=== PATIENT | male | born 1930 | race Caucasian/White ===

== ENCOUNTER 2016-09-24 16:00 | Inpatient (IN) | payer OTHER ==
[~2016-09-24] VITALS: Ht 177.8 cm; Wt 106.5 kg
--- NOTE | 2016-09-24 16:42 | EMERGENCY ROOM VISIT NOTE ---
History Report prepared by Dann: Giovana Khan Under the Supervision of: Dr. Juan Antonio Ball M.D. 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 The patient states he had blood work earlier this morning and it showed hemoglobin of 7. The patient states that otherwise he feels normal. The patient denies being tired, short of breath, chest pain, cough, fever. Chills, diarrhea, or vomiting, blood in stool. The patient states he does not currently take any blood thinners. 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 Review of Systems See HPI for pertinent positives & negatives. A total of 10 systems reviewed and were otherwise negative. Past Medical & Surgical Medical Problems: (1) Leukemia, acute (2) Symptomatic anemia Old medical records were reviewed. Nurse's notes were reviewed and I agree with. Family History Patient reports no known family medical history. Social History Smoking Status: Never Smoker Marital Status: single Housing Status: lives alone Occupation Status: retired Current/Historical Medications Scheduled Amiodarone Hcl (Cordarone), 200 MG PO DAILY Amlodipine (Norvasc), 5 MG PO DAILY Atorvastatin (Lipitor), 20 MG PO HS Docusate Sodium (Colace), 1 CAP PO BID Glipizide (Glucotrol), 10 MG PO BID Levothyroxine Sodium (Synthroid), 25 MCG PO DAILY Magnesium Hydroxide (Milk Of Magnesia), 30 ML PO PRN UD Melatonin-Pyridoxine (Melatonin), 3 MG PO HS Metoprolol Succinate (Toprol Xl), 25 MG PO DAILY Multivitamins/Minerals (Mvi With Minerals), 1 TAB PO DAILY Polyethylene Glycol 3350 (Miralax), 17 GM PO BID Sennosides-Docusate Sodium (Senna-S), 1 TAB PO DAILY Sitagliptin (Januvia), 25 MG PO DAILY Tamsulosin Hcl (Flomax), 0.4 MG PO DAILY [Protein Supp], 30 ML PO DAILY Scheduled PRN Acetaminophen Tab (Tylenol), 650 MG PO Q6 PRN for Pain or Fever Allergies Coded Allergies: Animal Dander (Verified Allergy, Unknown, UNKNOWN, 09/24/16) Physical Exam Vital Signs Date Time Temp Pulse Resp B/P Pulse Ox O2 Delivery O2 Flow Rate FiO2 09/24/16 17:18 76 18 81/51 95 Nasal Cannula 5.0 09/24/16 16:15 79 09/24/16 16:14 92 Nasal Cannula 5.0 09/24/16 16:13 92 Nasal Cannula 5.0 09/24/16 16:05 36.8 76 26 111/65 84 Room Air Physical Exam General: Chronically ill appearing older male in no acute distress. Sleepy but arousable, answers most questions appropriately. HEENT: Normal cephalic atraumatic. Pupils are equal round and reactive to light. Sclerae anicteric. Extraocular movements are intact. Oropharynx is pink with moist mucous membranes. No swelling of the mouth lips or tongue. Neck: Supple with a midline trachea. No meningeal signs or stiffness, no JVD or bruits. No Stridor. Chest: Clear to auscultation bilaterally. No wheezes or rhonchi. No increased work of breathing. Heart: regular rate and rhythm. Abdomen: Soft nontender, nondistended without rebound guarding or rigidity. Extremities: No cyanosis clubbing or edema. No calf tenderness or assymetry. Spine/Back. Non tender to palpation. No CVA tenderness Skin: Lower extremities with chronic skin changes from chronic vascular problems Neurologic exam: Cranial nerves two through 12 are intact. Motor and sensation are intact and symmetrical throughout. Medical Decision & Procedures ER Provider Diagnostic Interpretation: X-ray results as stated below per interpretation by me and the radiologist: CHEST ONE VIEW PORTABLE CLINICAL HISTORY: CHEST PAIN dyspnea COMPARISON STUDY: None FINDINGS: Moderate cardiomegaly. Prior median sternotomy. Prominent pulmonary vasculature. IMPRESSION: Developing congestive heart failure Electronically signed by: Pablito Arevalo M.D. 09/24/2016 4:58 PM Dictated Date/Time: 09/24/2016 4:57 PM Laboratory Results 09/24/16 17:04 Red Blood Count 2.71, Mean Corpuscular Volume 81.9, Mean Corpuscular Hemoglobin 27.7, Mean Corpuscular Hemoglobin Concent 33.8, Mean Platelet Volume 8.7 09/24/16 17:04 Test 09/24/16 17:04 09/24/16 17:08 White Blood Count 4.62 K/uL (4.8-10.8) Red Blood Count 2.71 M/uL (4.7-6.1) Hemoglobin 7.5 g/dL (14.0-18.0) Hematocrit 22.2 % (42-52) Mean Corpuscular Volume 81.9 fL (80-100) Mean Corpuscular Hemoglobin 27.7 pg (25-34) Mean Corpuscular Hemoglobin Concent 33.8 g/dl (32-36) Platelet Count 92 K/uL (130-400) Mean Platelet Volume 8.7 fL (7.4-10.4) RDW Standard Deviation 56.3 fL (36.4-46.3) RDW Coefficient of Variation 19.8 % (11.5-14.5) Nucleated RBC Absolute Count (auto) 0.16 K/uL (0-0) Neutrophils % (Manual) 61.0 % Lymphocytes % (Manual) 21.7 % Monocytes % (Manual) 3.5 % Basophils % (Manual) 1.7 % (0-2) Metamyelocytes % 7.0 % Myelocytes % 1.7 % Promyelocytes % 1.7 % Blast Cells % 1.7 % Nucleated Red Blood Cells % 3.5 % Neutrophils # (Manual) 2.82 K/uL (1.4-6.5) Total Absolute Neutrophils 2.82 K/uL (1.4-6.5) Lymphocytes # (Manual) 1.00 K/uL (1.2-3.4) Total Absolute Lymphocytes 1.00 K/uL (1.2-3.4) Monocytes # (Manual) 0.16 K/uL (0.11-0.59) Basophils # (Manual) 0.08 K/uL (0-0.2) Metamyelocytes # 0.32 K/uL (0-0) Myelocytes # 0.08 K/uL (0-0) Promyelocytes # 0.08 K/uL (0-0) Blast Cells # 0.08 K/uL (0-0) Platelet Estimate DECREASED Polychromasia 1+ Anisocytosis PRESENT Tear Drop Cells 1+ Acanthocytes 1+ Prothrombin Time 13.4 SECONDS (9.0-12.0) Prothromb Time International Ratio 1.2 (0.9-1.1) Activated Partial Thromboplast Time 29.1 SECONDS (21.0-31.0) Partial Thromboplastin Ratio 1.1 Anion Gap 9.0 mmol/L (3-11) Est Creatinine Clear Calc Drug Dose 50.2 ml/min Estimated GFR () 57.7 Estimated GFR (Non- 49.8 BUN/Creatinine Ratio 20.3 (10-20) Calcium Level 9.2 mg/dl (8.5-10.1) Total Bilirubin 0.8 mg/dl (0.2-1) Direct Bilirubin 0.3 mg/dl (0-0.2) Aspartate Amino Transf (AST/SGOT) 45 U/L (15-37) Alanine Aminotransferase (ALT/SGPT) 26 U/L (12-78) Alkaline Phosphatase 150 U/L (45-117) Total Creatine Kinase 49 U/L (39-308) Creatine Kinase MB 0.6 ng/ml (0.5-3.6) Creatine Kinase MB Ratio 1.2 (0-3.0) Total Protein 6.5 gm/dl (6.4-8.2) Albumin 2.5 gm/dl (3.4-5.0) Lipase 88 U/L (73-393) Thyroid Stimulating Hormone (TSH) 2.830 uIu/ml (0.300-4.500) Bedside Troponin I 0.010 ng/ml (0-0.045) IK-Xiu-B-Type Natriuretic Peptide 4324 pg/ml (0-1800) Laboratory studies as stated above per my review. ECG Indication: other (abnormal labs) Rate (beats per minute): 76 Rhythm: atrial fibrillation Findings: nonspecific-ST abn, other (Non specific T wave abnormalities) Comparison ECG Date: March 27, 2000 Change: Atrial fibrillation has replaced sinus rhythm. ED Course 162: Past medical records reviewed. The patient was evaluated in room C10, and a complete history and physical examination were performed. 1644: I discussed the case with Dr. Rivas [facility] Hospitalist. He agreed to see the patient for further management and care. Medical Decision Differentials include, but are not limited to; anemia, infection, CHF, electrolyte or metabolic abnormality, and arrhythmia. This patient comes in as described above. He was sent over after having weakness and some hypoxemia apparently. He didn't is on oxygen he was found be hypoxemic initially. He appears pale. He has no complaints. I have reviewed his labs and records from earlier today. EKG was obtained. He was type and crossed. He was found to be anemic. He also has low platelets. He also has a lot of immature cells including last bringing up the concern for a possible leukemic or bone marrow process. Chest x-ray shows findings consistent with CHF. His BNP is also elevated. EKG shows what appears to be A. fib with out ischemic changes. He has no significant electrode or metabolic abnormalities. I have consulted Dr. Johnston. He saw him in the ER. He has asked that we talk to Dr. Paris to ensure that this is a patient they can keep here because the blasts. At this point, I do not think is in blast crisis. Dr. Paris agrees and feels we can keep him and work him up your and this hospital. He will be admitted. Consults Time Called: [phone] Consulting Physician: Dr. Rivas [facility] Hospitalist Returned Call: [phone] I [facility] the [facility] He agreed to see the patient for further management and care. Impression Primary Impression: Anemia Additional Impression: Weakness Scribe Attestation The scribe's documentation has been prepared under my direction and personally reviewed by me in its entirety. I confirm that the note above accurately reflects all work, treatment, procedures, and medical decision making performed by me. Departure Information Dispostion Being Evaluated By Hospitalist Referrals Leatha Velez (PCP) Patient Instructions [facility] Health Problem Qualifiers
[2016-09-24] MEDS ORDERED: POLY335019 PO (16:52)
[2016-09-24] MEDS ORDERED: TAMS0.4C38 PO (16:52)
[2016-09-24] MEDS ORDERED: DOCU-94 PO (16:52)
[2016-09-24] MEDS ORDERED: MULT-513 PO (16:52)
[2016-09-24] MEDS ORDERED: MOML PO (16:52)
[2016-09-24] MEDS ORDERED: ATOR-22 PO (16:52)
[2016-09-24] MEDS ORDERED: GLIP10TA3 PO (16:52)
[2016-09-24] MEDS ORDERED: PROTEIN PO (16:52)
[2016-09-24] MEDS ORDERED: SENN-104 PO (16:52)
[2016-09-24] MEDS ORDERED: SITA25TA PO (16:52)
[2016-09-24] MEDS ORDERED: AMIO200T4 PO (16:52)
[2016-09-24] MEDS ORDERED: LEVO25TA PO (16:52)
[2016-09-24] MEDS ORDERED: ACET325T96 PO (16:52)
[2016-09-24] MEDS ORDERED: MELA3TAB12 PO (16:52)
[2016-09-24] MEDS ORDERED: AMLO-110 PO (16:52)
[2016-09-24] MEDS ORDERED: METO25TA3 PO (16:52)
--- NOTE | 2016-09-24 17:00 | DIAGNOSTIC IMAGING REPORT ---
CHEST ONE VIEW PORTABLE CLINICAL HISTORY: CHEST PAIN dyspnea COMPARISON STUDY: None FINDINGS: Moderate cardiomegaly. Prior median sternotomy. Prominent pulmonary vasculature. IMPRESSION: Developing congestive heart failure Electronically signed by: Pablito Arevalo M.D. 09/24/2016 4:58 PM Dictated Date/Time: 09/24/2016 4:57 PM
[2016-09-24 17:23] LABS: HEMATOCRIT 22.2 % (42-52); MEAN CELL VOLUME 81.9 fL (80-100); MEAN CORPUSCULAR HEMOGLOBIN 27.7 pg (25-34); MEAN CORPUSCULAR HGB CONC 33.8 g/dl (32-36); RED BLOOD COUNT 2.71 M/uL (4.7-6.1); WHITE BLOOD COUNT 4.62 K/uL (4.8-10.8)
[2016-09-24 17:29] LABS: POINT OF CARE TROPONIN I 0.01 ng/ml (0-0.045)
[2016-09-24] MEDS ORDERED: ZOLPIDEM TARTRATE 5 MG TAB PO PRN (17:30)
[2016-09-24] MEDS ORDERED: ONDANSETRON INJ 2 MG/ML 2 ML VIAL IV PRN ×2 (17:30→20:00)
[2016-09-24] MEDS ORDERED: ACETAMINOPHEN 325 MG TAB PO PRN (17:30)
[2016-09-24] MEDS ORDERED: NITROGLYCERIN 0.4 MG SL PER TAB CHARGE SL PRN (17:30)
[2016-09-24 17:36] LABS: INR 1.2 (0.9-1.1); PARTIAL THROMBOPLASTIN RATIO 1.1; PROTHROMBIN TIME (PATIENT) 13.4 SECONDS (9.0-12.0)
[2016-09-24 17:44] LABS: BUN/CREATININE RATIO 20.3 (10-20); CALCIUM 9.2 mg/dl (8.5-10.1); CREATININE 1.3 mg/dl (0.60-1.40); POTASSIUM 4.1 mmol/L (3.5-5.1)
[2016-09-24 17:54] LABS: CKMB/CK RATIO 1.2 (0-3.0); THYROID STIMULATING HORMONE 2.83 uIu/ml (0.300-4.500)
[2016-09-24 18:28] LABS: ACANTHOCYTES 1+; ANISOCYTOSIS PRESENT; BASO ABS # 0.08 K/uL (0-0.2); BASOPHIL % 1.7 % (0-2); COMPLETE YES; LYMPHOCYTE % 21.7 %; MEAN PLATELET VOLUME 8.7 fL (7.4-10.4); META ABS # 0.32 K/uL (0-0); MYELOCYTE % 1.7 %; PLATELET COUNT 92 K/uL (130-400); PLT ESTIMATE DECREASED; POLYCHROMASIA 1+; TEAR DROP CELLS 1+
[2016-09-24] MEDS ORDERED: IPRATROPIUM BROMIDE NEB SOLN 0.02% 2.5 ML VIAL INH PRN (19:00)
[2016-09-24] MEDS ORDERED: LEVALBUTEROL 1.25MG/0.5ML NEB INH PRN (19:00)
[2016-09-24] MEDS ORDERED: PIPERACILL/TAZOBAC CONSULT ACTIVE PRN (19:00)
[2016-09-24] MEDS ORDERED: PIPERACILL/TAZOBAC IV 3.375 GM in DEXTROSE 5% 100ML 100 ML IV ONE (19:00)
[2016-09-24] MEDS ORDERED: VANCOMYCIN CONSULT ACTIVE PRN (19:15)
[2016-09-24 19:17] VITALS: BP 110/73; PULSE 86; TEMP 36.8; O2SAT 96; BMI 32.9
[2016-09-24] MEDS: NSS + 20MEQ KCL 1000ML 1,000 ML IV SCH (19:17)
[2016-09-24] MEDS: LEVOFLOXACIN / D5W 500 MG in PREMIXED IN D5W 100 ML IV SCH ×2 (19:17→23:19)
[2016-09-24] MEDS: METHYLPREDNISOLONE IV 30 MG in SYRINGE 0 ML IV SCH (19:17)
--- NOTE | 2016-09-24 19:56 | History and Physical ---
History & Physical Date & Time of Service: Sep 24, 2016 at 19:39 Chief Complaint: Leukemia, Acute, Symptomatic Anemia Primary Care Physician: Terrence Gaona M.D. History of Present Illness Source: patient, clinic records, hospital records The patient is an 86-year-old male who presents emergency department from [facility] after lab work this morning revealed a hemoglobin of 7. The patient does not have any active complaints at this point although he looks very fatigued. He denies blood in urine or blood in stool Family History Patient reports no known family medical history. Social History Smoking Status: Unknown if Ever Smoked Smokeless Tobacco Use: No Alcohol Use: none Marital Status: single Housing status: [facility] Occupational Status: retired Multi-Drug Resistant Organisms History of MDRO: No Allergies Coded Allergies: Animal Dander (Verified Allergy, Unknown, UNKNOWN, 09/24/16) Home Medications Scheduled Amiodarone Hcl (Cordarone), 200 MG PO DAILY Amlodipine (Norvasc), 5 MG PO DAILY Atorvastatin (Lipitor), 20 MG PO HS Docusate Sodium (Colace), 1 CAP PO BID Glipizide (Glucotrol), 10 MG PO BID Levothyroxine Sodium (Synthroid), 25 MCG PO DAILY Magnesium Hydroxide (Milk Of Magnesia), 30 ML PO PRN UD Melatonin-Pyridoxine (Melatonin), 3 MG PO HS Metoprolol Succinate (Toprol Xl), 25 MG PO DAILY Multivitamins/Minerals (Mvi With Minerals), 1 TAB PO DAILY Polyethylene Glycol 3350 (Miralax), 17 GM PO BID Sennosides-Docusate Sodium (Senna-S), 1 TAB PO DAILY Sitagliptin (Januvia), 25 MG PO DAILY Tamsulosin Hcl (Flomax), 0.4 MG PO DAILY [Protein Supp], 30 ML PO DAILY Scheduled PRN Acetaminophen Tab (Tylenol), 650 MG PO Q6 PRN for Pain or Fever Review of Systems The patient denies chest pain, palpitations, shortness of breath, cough, lower extremity swelling, vision change, hearing change, sore throat, fevers, chills, sweats, weight change, fatigue, nausea, vomiting, abdominal pain, pelvic pain, blood in urine or stool, dysuria, urinary frequency or urgency, lightheadedness , dizziness, headache, memory loss, rash, abnormal bruising or bleeding, imbalance, focal or generalized weakness, numbness or tingling in arms or legs, arthralgias or myalgias, back or neck pain, night sweats, or allergy symptoms. The review of systems is otherwise negative other than for that already noted above, and at least 10 systems have been reviewed. Physical Exam Vital Signs Date Time Temp Pulse Resp B/P Pulse Ox O2 Delivery O2 Flow Rate FiO2 09/24/16 17:54 73 18 115/63 100 Nasal Cannula 5.0 09/24/16 17:18 76 18 81/51 95 Nasal Cannula 5.0 09/24/16 16:15 79 09/24/16 16:14 92 Nasal Cannula 5.0 09/24/16 16:13 92 Nasal Cannula 5.0 09/24/16 16:05 36.8 76 26 111/65 84 Room Air The patient is awake, alert and oriented 3, normocephalic and atraumatic, looks fatigued and pale, lying in bed and in no acute distress. HEENT--PERRL, EOMI, mucous membranes and oropharynx dry. Neck--supple, no JVD or bruits, thyroid normal, trachea midline, no adenopathy. Heart--normal S1 and S2, no extra beats, no murmurs, rubs or gallops. Lungs--decreased breath sounds throughout, no respiratory distress, no accessory muscle use. Abdomen--normal bowel sounds and soft, nontender and nondistended, no hernias or masses, no organomegaly. Extremities--no cyanosis, clubbing or edema. There are good distal pulses b/l. Dermatologic--normal skin turgor, normal color, warm and dry, no abnormal lymph nodes, no rash. Neurologic--cranial nerves II through XII grossly intact. Rheumatologic--normal range of motion, nontender, muscles and joints. Psychiatric--normal affect. Diagnostics Laboratory Results Results Past 24 Hours Test 09/24/16 16:35 09/24/16 17:04 09/24/16 17:08 Range/Units Creatine Kinase MB Ratio 1.2 0-3.0 White Blood Count 4.62 4.8-10.8 K/uL Red Blood Count 2.71 4.7-6.1 M/uL Hemoglobin 7.5 14.0-18.0 g/dL Hematocrit 22.2 42-52 % Mean Corpuscular Volume 81.9 80-100 fL Mean Corpuscular Hemoglobin 27.7 25-34 pg Mean Corpuscular Hemoglobin Concent 33.8 32-36 g/dl Platelet Count 92 130-400 K/uL Mean Platelet Volume 8.7 7.4-10.4 fL RDW Standard Deviation 56.3 36.4-46.3 fL RDW Coefficient of Variation 19.8 11.5-14.5 % Nucleated RBC Absolute Count (auto) 0.16 0-0 K/uL Neutrophils % (Manual) 61.0 % Lymphocytes % (Manual) 21.7 % Monocytes % (Manual) 3.5 % Basophils % (Manual) 1.7 0-2 % Metamyelocytes % 7.0 % Myelocytes % 1.7 % Promyelocytes % 1.7 % Blast Cells % 1.7 % Nucleated Red Blood Cells % 3.5 % Neutrophils # (Manual) 2.82 1.4-6.5 K/uL Total Absolute Neutrophils 2.82 1.4-6.5 K/uL Lymphocytes # (Manual) 1.00 1.2-3.4 K/uL Total Absolute Lymphocytes 1.00 1.2-3.4 K/uL Monocytes # (Manual) 0.16 0.11-0.59 K/uL Basophils # (Manual) 0.08 0-0.2 K/uL Metamyelocytes # 0.32 0-0 K/uL Myelocytes # 0.08 0-0 K/uL Promyelocytes # 0.08 0-0 K/uL Blast Cells # 0.08 0-0 K/uL Platelet Estimate DECREASED Polychromasia 1+ Anisocytosis PRESENT Tear Drop Cells 1+ Acanthocytes 1+ Prothrombin Time 13.4 9.0-12.0 SECONDS Prothromb Time International Ratio 1.2 0.9-1.1 Activated Partial Thromboplast Time 29.1 21.0-31.0 SECONDS Partial Thromboplastin Ratio 1.1 Sodium Level 135 136-145 mmol/L Potassium Level 4.1 3.5-5.1 mmol/L Chloride Level 99 98-107 mmol/L Carbon Dioxide Level 27 21-32 mmol/L Anion Gap 9.0 3-11 mmol/L Blood Urea Nitrogen 26 7-18 mg/dl Creatinine 1.30 0.60-1.40 mg/dl Est Creatinine Clear Calc Drug Dose 50.2 ml/min Estimated GFR () 57.7 Estimated GFR (Non- 49.8 BUN/Creatinine Ratio 20.3 10-20 Random Glucose 50 70-99 mg/dl Calcium Level 9.2 8.5-10.1 mg/dl Total Bilirubin 0.8 0.2-1 mg/dl Direct Bilirubin 0.3 0-0.2 mg/dl Aspartate Amino Transf (AST/SGOT) 45 15-37 U/L Alanine Aminotransferase (ALT/SGPT) 26 12-78 U/L Alkaline Phosphatase 150 45-117 U/L Total Creatine Kinase 49 39-308 U/L Creatine Kinase MB 0.6 0.5-3.6 ng/ml Total Protein 6.5 6.4-8.2 gm/dl Albumin 2.5 3.4-5.0 gm/dl Lipase 88 73-393 U/L Thyroid Stimulating Hormone (TSH) 2.830 0.300-4.500 uIu/ml Bedside Troponin I 0.010 0-0.045 ng/ml CN-Kyo-X-Type Natriuretic Peptide 4324 0-1800 pg/ml Diagnostic Radiology Patient Name: TAI MONAHAN V Unit Number: [id number] Dictated: 09/24/161656 Transcribed: 09/24/161656 MS Printed Date/Time: [~ rep prt dt]/[~ rep prt tm] [~ rep ct labl] - [~ rep ct ivnm] [facility] [place] [address] Dictated: 09/24/161656 Transcribed: 09/24/161656 MS Printed Date/Time: [~ rep prt dt]/[~ rep prt tm] [~ rep ct labl] - [~ rep ct ivnm] CHEST ONE VIEW PORTABLE CLINICAL HISTORY: CHEST PAIN dyspnea COMPARISON STUDY: None FINDINGS: Moderate cardiomegaly. Prior median sternotomy. Prominent pulmonary vasculature. IMPRESSION: Developing congestive heart failure Electronically signed by: Pablito Arevalo M.D. 09/24/2016 4:58 PM Dictated Date/Time: 09/24/2016 4:57 PM The status of this report is Signed. Draft = Not yet reviewed or approved by Radiologist. Signed = Reviewed and approved by Radiologist. <AttendingPhy></AttendingPhy> <FamilyPhy>Bharathi Benavides D.O.</FamilyPhy> < PrimaryPhy>Terrence Gaona M.D.</PrimaryPhy> <UnitNumber>[id number]</ UnitNumber> <VisitNumber>[id number]</VisitNumber> <PatientName>TAI MONAHAN V</PatientName> <DateOfBirth>1930</DateOfBirth> <Location>[facility]</ Location> <ServiceDate>09/24/16</ServiceDate> <MNE>ESINDI</MNE> <OrderingPhy> Juan Antonio Ball M.D.</OrderingPhy> <OrderingPhyMNE>f rep ord dr max</ OrderingPhyMNE> <DictatingPhyMNE>f rep dict dr max</DictatingPhyMNE> <CCListMNE> f rep ct mne</CCListMNE> <AdmittingPhyMNE>f pt admit dr max</AdmittingPhyMNE> < AttendingPhyMNE>f pt attend dr max</AttendingPhyMNE> <ConsultingPhyMNE>f pt consult dr max</ConsultingPhyMNE> <FamilyPhyMNE>f pt fam dr max</FamilyPhyMNE> <OtherPhyMNE>f pt other dr max</OtherPhyMNE> < PrimaryPhyMNE>f pt prim care dr max</PrimaryPhyMNE> <ReferringPhyMNE>f pt referring dr max</ReferringPhyMNE> EKG EKG shows atrial fibrillation at 76 bpm, old inferior ND, old anterior septal ND , no change since 03/27/2000. Impression Assessment and Plan Acute respiratory failure with hypoxia/bilateral lower lobe pneumonia--patient' s pulse ox was 84% on room air upon arrival improved to the low 90s with 3 L nasal cannula O2. Be placed on Zosyn 3.375 mg IV every 8 hours, vancomycin IV per renal dosing, Levaquin 500 mg IV every 24 hours, Solu-Medrol 30 mg IV every 8 hours, and Xopenex with Atrovent nebulizer to use every 6 hours while awake and every 2 hours when necessary. Symptomatic severe anemia-- hemoglobin at [facility] was 7, with repeat here 7.5. His differential includes blast cells with a likely diagnosis of acute leukemia. He'll be admitted to the telemetry unit here, will transfuse 2 units packed red blood cells that are irradiated and leuko-depleted. We'll follow serial laboratories. Consult Dr. Paris from hematology oncology who is already aware the patient. Atrial fibrillation/hypertension--continue amiodarone 200 mg by mouth daily. Hold amlodipine 5 mg by mouth daily, and metoprolol succinate 25 mg by mouth daily. Hypercholesterolemia continue atorvastatin 20 mg by mouth at bedtime. Diabetes mellitus--hold glipizide 10 mg by mouth twice a day and Januvia 25 mg by mouth daily, place on Accu-Cheks before meals and at bedtime with NovoLog coverage. Hypothyroidism--continue levothyroxine sodium at 25 g by mouth daily. BPH--continue tamsulosin 0.4 mg by mouth daily. Level of Care Telemetry Advanced Directives Existing Advance Directive: No Existing Living Will: Yes Existing Power of Inventory Accountant: Yes Resuscitation Status FULL RESUSCITATION VTE Prophylaxis VTE Risk Assessment Done? Y/N: Yes Risk Level: Moderate Given or contraindicated: SCD's Social Service Consult Lives in [facility]
[2016-09-24 20:00] VITALS: O2SAT 96
[2016-09-24] MEDS ORDERED: GLUCOSE 10 TABS/TUBE PO PRN (20:00)
[2016-09-24] MEDS ORDERED: DEXTROSE 50% 50 ML SYR IV PRN (20:00)
[2016-09-24] MEDS ORDERED: GLUCOSE 40% GEL 15 GM TUBE PO PRN (20:00)
[2016-09-24] MEDS ORDERED: GLUCAGON FOR INJ 1 MG VIAL SQ PRN (20:00)
[2016-09-24] MEDS: ATORVASTATIN 20 MG TAB PO SCH ×2 (20:35→21:00)
[2016-09-24] MEDS: GUAIFENESIN 600 MG TABCR PO SCH ×2 (20:35→21:00)
[2016-09-24] MEDS: INSULIN ASPART 100 UNITS/ML 3 ML PEN SC SCH (20:39)
[2016-09-24] MEDS ORDERED: LEVALBUTEROL/IPRATROPIUM NEB INH SCH (21:00)
[2016-09-24] MEDS ORDERED: VANCOMYCIN INJ 2,300 MG in SODIUM CHLORIDE 0.9% 500ML 500 ML IV ONE (21:00)
[2016-09-24] MEDS: LEVALBUTEROL 1.25MG/0.5ML NEB INH SCH (21:00)
[2016-09-24] MEDS: IPRATROPIUM BROMIDE NEB SOLN 0.02% 2.5 ML VIAL INH SCH (21:00)
--- NOTE | 2016-09-24 21:28 | Pharmacy Progress Note ---
Pharmacy Antibiotic Consult Date of Service: Sep 24, 2016. Pharmacy Dosing Scope Pharmacy is consulted to initiate Vancomycin/Zosyn IV dosing therapy, order appropriate labs and adjust drug dose/frequency. Subjective The patient is a 86 year old male admitted on Sep 24, 2016 at 17:19 with respiratory failure, possible bilateral pneumonia and symptomatic anemia ( possible leukemia?). Objective Height (Feet): 5 Height (Inches): 10.00 Weight (Kilograms): 103.900 Lab Results (24hrs): Laboratory Tests Test 09/24/16 17:04 BUN/Creatinine Ratio 20.3 Blood Urea Nitrogen 26 mg/dl Creatinine 1.30 mg/dl White Blood Count 4.62 K/uL Red Blood Count 2.71 M/uL Hemoglobin 7.5 g/dL Hematocrit 22.2 % Mean Corpuscular Volume 81.9 fL Mean Corpuscular Hemoglobin 27.7 pg Mean Corpuscular Hemoglobin Concent 33.8 g/dl Platelet Count 92 K/uL Mean Platelet Volume 8.7 fL Micro Results: None to report Recent Pertinent Medications Item Value Date Time Piperacillin Sod/ 115 ml @ 215 mls/hr 09/24/16 1900 Tazobactam Sod 1900 ONCE/IV 09/24/161916 3.375 gm/Dextrose Methylprednisolone 0.48 ml @ 1.5 mls/min 09/24/161914 Sodium Succinate Q8@0400,1200,2000/IV 09/24/161916 30 mg/Syringe Vancomycin HCl 1 ea 09/24/161914 (Consult) UD PRN/N/A Piperacillin Sod/ 1 ea 09/24/16 1900 Tazobactam Sod UD PRN/N/A (Consult) Vancomycin HCl 546 ml @ 200 mls/hr 09/24/16 2100 2300 mg/Sodium 2100 ONCE/IV 09/24/16 2035 Chloride Levofloxacin 500 100 ml @ 100 mls/hr 09/24/16 2000 mg/Prmx DAILY@2000/IV 09/24/161916 Assessment & Plan [age] yo male with acute respiratory failure, possible bilateral pneumonia and potential immunocompromised state. BMI 32.9 thus will adjust volume down slightly. Loading dose: Vancomycin 2300 mg (~22 mg/kg) IV X 1 dose then: Vancomycin 1350mg (~13 mg/kg) IV every 18 hours. Goal peak level estimate: between 30 - 40 mcg/mL. Goal trough level estimate: between 15 - 20 mcg/mL. (high trough goals for pulmonary process and admission to critical care) Vancomycin trough level has been ordered for: 09/27/16 prior to the 1800 hours dose. Zosyn 3.375 mg IV q 8 hours with extended infusion protocol Pharmacy will continue to follow and will adjust dose/frequency as necessary. Thank you
[2016-09-24 23:27] VITALS: BP 108/69; PULSE 81; TEMP 36.6; O2SAT 91
[2016-09-24 23:59] VITALS: O2SAT 91
[2016-09-25] VITALS (22 sets, daily range): BP systolic 98–116; BP diastolic 35–78; PULSE 68–83; TEMP 36.4–37.1; O2SAT 92–98; BMI 30.6
[2016-09-25] MEDS: LEVALBUTEROL 1.25MG/0.5ML NEB INH SCH ×3 (02:22→21:42)
[2016-09-25] MEDS: IPRATROPIUM BROMIDE NEB SOLN 0.02% 2.5 ML VIAL INH SCH ×3 (02:22→21:42)
[2016-09-25] MEDS: PIPERACILL/TAZOBAC IV 3.375 GM in DEXTROSE 5% 100ML 100 ML IV SCH ×3 (02:24→18:43)
[2016-09-25 05:15] LABS: HEMATOCRIT 23.6 % (42-52); MEAN CELL VOLUME 82.8 fL (80-100); MEAN CORPUSCULAR HEMOGLOBIN 27.4 pg (25-34); MEAN CORPUSCULAR HGB CONC 33.1 g/dl (32-36); RED BLOOD COUNT 2.85 M/uL (4.7-6.1); WHITE BLOOD COUNT 5.76 K/uL (4.8-10.8)
[2016-09-25 05:33] LABS: PLATELET COUNT 83 K/uL (130-400)
[2016-09-25 05:48] LABS: ANISOCYTOSIS PRESENT; COMPLETE YES; LYMPH ABS # 0.55 K/uL (1.2-3.4); LYMPHOCYTE % 9.6 %; META ABS # 0.25 K/uL (0-0); METAMYELOCYTE % 4.3 %; MYELOCYTE % 8.7 %; NEUTROPHILS % 70.4 %; POIKILOCYTOSIS PRESENT; SCHISTOCYTES OCCASIONAL
[2016-09-25] MEDS: METHYLPREDNISOLONE IV 30 MG in SYRINGE 0 ML IV SCH ×3 (05:51→20:50)
[2016-09-25] MEDS: LEVOTHYROXINE 25 MCG TAB PO SCH (05:52)
[2016-09-25 05:59] LABS: BUN/CREATININE RATIO 21.1 (10-20); CREATININE 1.3 mg/dl (0.60-1.40); MAGNESIUM 2.1 mg/dl (1.8-2.4); POTASSIUM 4.2 mmol/L (3.5-5.1)
[2016-09-25] MEDS: AMIODARONE 200 MG TAB PO SCH (07:59)
[2016-09-25] MEDS: GUAIFENESIN 600 MG TABCR PO SCH ×2 (07:59→20:51)
[2016-09-25] MEDS: TAMSULOSIN HCL 0.4 MG CAP PO SCH (07:59)
[2016-09-25 08:00] LABS: ACANTHOCYTES 1+
[2016-09-25 08:01] LABS: OVALOCYTES 1+; POLYCHROMASIA 1+
[2016-09-25] MEDS: INSULIN ASPART 100 UNITS/ML 3 ML PEN SC SCH ×4 (08:04→20:55)
--- NOTE | 2016-09-25 09:42 | Clinical Documentation Query ---
MARIAH Martinez : CLINICAL DOCUMENTATION QUERIES QUERY 1 OF 2 Patient is an 86 year old male admitted for evaluation and treatment of anemia and hypoxia. Diagnoses included bilateral lower lobe pneumonia. He is being treated with Levaquin, Zosyn, and Vancomycin, in addition to steroids and nebulizer treatments. As appropriate, consider explicit documentation of the possible or suspected specific type(s) of pneumonia you are treating in this patient. Thank you. In your clinical opinion is this patient being managed for: ( ) (Possible/Suspected) Gram negative and/or MRSA pneumonia ( ) Other explanation of clinical findings (Please Explain) ( ) Unable to determine (Please Define) ( ) Need to Discuss ( ) Not Agree The medical record reflects the following clinical findings, treatment, and risk factors. Clinical Indicators: As above Treatment:He is being treated with Levaquin, Zosyn, and Vancomycin, in addition to steroids and nebulizer treatments Risk Factors: Age, [place]iary resident, leukopenia QUERY 2 OF 2 Clinical documentation includes a diagnosis of: Acute Respiratory Failure. There is documented hypoxemia. ED physical exam documentation included "no acute distress" and "no increased work of breathing". H&P documentation included "no acute distress", "no respiratory distress", and "no accessory muscle use". Due to stringent requirements by our coding department, multiple clinical indicators associated with this diagnosis must be present in order for this to be coded/captured within the medical record. If appropriate, please document 2 or more of the following clinical indicators in daily progress notes and the discharge summary. If you feel the diagnosis of acute respiratory failure was made in error, or do not agree with it, simply discontinue documentation thereof. Acute Respiratory Failure indicators include: * Respirations >28 * Air hunger * Use of accessory muscles of respiration * Inability to speak in full sentences * Cyanosis * Pulse ox <90% RA or <95% on O2 *pH <7.35 or >7.45 * pO2 < 60 mm Hg (or 10mm below COPD patient's baseline) * pCO2 >50mm Hg (or 10mm above COPD patient's baseline) * mechanical ventilation * Increased work of breathing * Tachypnea Please clarify and document your clinical opinion in the progress notes and discharge summary. Terms such as "probable", "suspected", "likely", "questionable", "possible", or "still to be ruled out" are acceptable. IF IN AGREEMENT, YOU MUST DOCUMENT ABOVE DIAGNOSTIC STATEMENT IN DAILY PROGRESS NOTES AND DISCHARGE SUMMARY. This document is not part of the patient's record. Thank You, Mairah Nunez RN [phone]
--- NOTE | 2016-09-25 11:03 | Oncology Consultation ---
Oncology/Heme Consultation Date of Consultation: Sep 25, 2016. Attending Physician: Rene Rivas M.D. Reason for Consultation: Abnormal blood smear History of Present Illness Mr. De Dios is in a 6-year-old gentleman that was admitted last evening. It is unclear or at least he is unclear as to why he was admitted. The only story that I get is that he has been fatigued. He has a very poor historian. When he was visited with any emergency room a CBC was done that showed an abnormal peripheral smear and subsequently we have been consulted. He denies any fever although it's unclear. He denies any weight loss. He denies any new shortness of breath. Past Medical/Surgical History Medical Problems: (1) Anemia Status: Acute (2) Weakness Status: Acute Family History Patient reports no known family medical history. Social History Smoking Status: Unknown if Ever Smoked Smokeless Tobacco Use: No Alcohol Use: none Marital Status: single Housing Status: lives alone Occupation Status: retired Allergies Coded Allergies: Animal Dander (Verified Allergy, Unknown, UNKNOWN, 09/24/16) Home Medications Scheduled Amiodarone Hcl (Cordarone), 200 MG PO DAILY Amlodipine (Norvasc), 5 MG PO DAILY Atorvastatin (Lipitor), 20 MG PO HS Docusate Sodium (Colace), 1 CAP PO BID Glipizide (Glucotrol), 10 MG PO BID Levothyroxine Sodium (Synthroid), 25 MCG PO DAILY Magnesium Hydroxide (Milk Of Magnesia), 30 ML PO PRN UD Melatonin-Pyridoxine (Melatonin), 3 MG PO HS Metoprolol Succinate (Toprol Xl), 25 MG PO DAILY Multivitamins/Minerals (Mvi With Minerals), 1 TAB PO DAILY Polyethylene Glycol 3350 (Miralax), 17 GM PO BID Sennosides-Docusate Sodium (Senna-S), 1 TAB PO DAILY Sitagliptin (Januvia), 25 MG PO DAILY Tamsulosin Hcl (Flomax), 0.4 MG PO DAILY [Protein Supp], 30 ML PO DAILY Scheduled PRN Acetaminophen Tab (Tylenol), 650 MG PO Q6 PRN for Pain or Fever Current Inpatient Medications Current Inpatient Medications Medications (Trade) Dose Ordered Sig/Reyna Route Start Time Stop Time Status Last Admin Dose Admin Acetaminophen (Tylenol Tab) 650 mg Q4H PRN PO 09/24/16 17:30 10/24/16 17:29 Zolpidem Tartrate (Ambien Tab) 5 mg HSZ PRN PO 09/24/16 17:30 10/24/16 17:29 Nitroglycerin (Nitrostat Tab) 0.4 mg UD PRN SL 09/24/16 17:30 10/24/16 17:29 Ondansetron HCl 4 mg 4 mg Q6H PRN IV 09/24/16 17:30 10/24/16 17:29 Potassium Chloride/Sodium Chloride 1,000 ml @ 100 mls/hr Q10H IV 09/24/16 19:00 10/24/16 18:59 09/24/16 19:17 100 MLS/HR Pantoprazole Sodium 40 mg/ Syringe 10 ml @ 5 mls/min DAILY@11 IV 09/25/16 11:00 10/25/16 10:59 Piperacillin Sod/ Tazobactam Sod 3.375 gm/Dextrose 115 ml @ 28.75 mls/ hr Q8@0200,1000,1800 IV 09/25/16 02:00 10/01/16 17:59 09/25/16 09:08 28.75 MLS/HR Vancomycin HCl 1350 mg/Sodium Chloride 277 ml @ 125 mls/hr Q18H IV 09/25/16 12:00 10/01/16 20:34 Methylprednisolone Sodium Succinate 30 mg/Syringe 0.48 ml @ 1.5 mls/min Q8@0400,1200,2000 IV 09/24/16 19:15 10/24/16 19:14 09/25/16 05:51 1.5 MLS/MIN Levofloxacin/Prmx (Levaquin / D5W/ Premixed D5W) 100 ml @ 100 mls/hr DAILY@2000 IV 09/24/16 20:00 10/01/16 19:59 09/24/16 23:19 100 MLS/HR Guaifenesin (Mucinex Contr Rel Tab) 600 mg BID PO 09/24/16 21:00 10/24/16 20:59 09/25/16 07:59 600 MG Ipratropium [place] (Atrovent 0.02% 0.5MG/2.5ML Neb) 0.5 mg Q6R INH 4/12/17 21:00 10/24/16 20:59 09/25/16 07:05 0.5 MG Levalbuterol (Xopenex 1.25MG/ 0.5ML Neb) 1.25 mg Q6R INH 09/24/16 21:00 10/24/16 20:59 09/25/16 07:05 1.25 MG Ipratropium [place] (Atrovent 0.02% 0.5MG/2.5ML Neb) 0.5 mg Q2H PRN INH 09/24/16 19:00 10/24/16 18:59 Levalbuterol (Xopenex 1.25MG/ 0.5ML Neb) 1.25 mg Q2H PRN INH 09/24/16 19:00 10/24/16 18:59 Piperacillin Sod/ Tazobactam Sod (Consult) 1 ea UD PRN N/A 09/24/16 19:00 10/04/16 18:59 Vancomycin HCl (Consult) 1 ea UD PRN N/A 09/24/16 19:15 10/04/16 19:14 Amiodarone HCl (Cordarone Tab) 200 mg DAILY PO 09/25/16 09:00 10/25/16 08:59 09/25/16 07:59 200 MG Atorvastatin Calcium (Lipitor Tab) 20 mg HS PO 09/24/16 21:00 10/24/16 20:59 Levothyroxine Sodium (Synthroid Tab) 25 mcg DAILYBB PO 09/25/16 06:00 10/25/16 05:59 09/25/16 05:52 25 MCG Tamsulosin HCl (Flomax Cap) 0.4 mg DAILY PO 09/25/16 09:00 10/25/16 08:59 09/25/16 07:59 0.4 MG Ondansetron HCl (Zofran Inj) 4 mg Q6H PRN IV 09/24/16 20:00 10/24/16 19:59 Insulin Aspart (novoLOG ASPART) SLIDING SCALE If C... ACHS SC 09/24/16 21:00 10/24/16 20:59 09/25/16 08:04 3 UNITS Glucose (Glucose 40% Gel) UD PRN PO 09/24/16 20:00 10/24/16 19:59 Glucose (Glucose Chew Tab) 1 tabs UD PRN PO 09/24/16 20:00 10/24/16 19:59 Dextrose (Dextrose 50% 50ML Syringe) 50 ml UD PRN IV 09/24/16 20:00 10/24/16 19:59 Glucagon (Glucagon Inj) 1 mg UD PRN SQ 09/24/16 20:00 10/24/16 19:59 Review of Systems The review of systems with this particular patient is difficult to at baseline be certain. Constitutional: Negative for definite weight loss, night sweats, or fever Eyes: Negative for event change of vision ENT: Negative for epistaxis, nasal discharge, sore throat, or deafness Cardiovascular: Negative for chest pain, palpitations, dizziness, diaphoresis Respiratory: Negative for new shortness of breath,hemoptysis, or purulent cough Gastrointestinal: Negative for diarrhea, hematemesis, melena, nausea, vomiting , or dyspepsia Integumentary (skin): Negative for rash or jaundice discoloration Genitourinary: Negative for urinary frequency, hematuria, or dysuria Neurological: Negative for weakness, seizure activity, headache, or dizziness Lymphatic/Hematologic: Negative for petechiae, bleeding or new adenopathy Musculoskeletal: Negative for new joint or back pain Allergic/Immunologic: Negative for unusual rash or pruritis. Physical Exam Date Time Temp Pulse Resp B/P Pulse Ox O2 Delivery O2 Flow Rate FiO2 09/25/16 09:04 37.0 80 20 103/69 94 2.0 09/25/16 08:52 37.1 80 18 101/68 94 2.0 09/25/16 08:20 37.0 83 20 109/63 93 Nasal Cannula 2.0 09/25/16 08:00 95 Nasal Cannula 2.0 09/25/16 07:30 36.8 78 18 115/78 94 2.0 09/25/16 07:05 79 18 95 Nasal Cannula 2.0 09/25/16 06:32 36.6 80 18 110/35 92 2.0 09/25/16 06:09 36.4 77 18 116/77 98 2.0 09/25/16 05:46 36.5 79 18 105/70 96 2.0 09/25/16 04:00 Nasal Cannula 2.0 09/25/16 03:13 36.4 79 20 98/62 94 Nasal Cannula 2.0 09/25/16 02:20 75 18 93 Nasal Cannula 2.0 09/24/16 23:59 91 Nasal Cannula 2.0 09/24/16 23:27 36.6 81 24 108/69 91 Nasal Cannula 2.0 09/24/16 20:00 96 Nasal Cannula 2.0 09/24/16 19:17 36.8 86 16 110/73 96 Nasal Cannula 2.0 09/24/16 17:54 73 18 115/63 100 Nasal Cannula 5.0 09/24/16 17:18 76 18 81/51 95 Nasal Cannula 5.0 09/24/16 16:15 79 09/24/16 16:14 92 Nasal Cannula 5.0 09/24/16 16:13 92 Nasal Cannula 5.0 09/24/16 16:05 36.8 76 26 111/65 84 Room Air Constitutional: vitals are stable. Eyes: Eyes are BARBARA EOMI without conjuctival erythema or icterus. ENT: External examination was negative for masses. Neck: Negative for masses or palpable thyromegaly Respiratory: Lung sounds were generally clear bilaterally Cardiovascular: Heart was RRR without significant murmur, gallops aoe rubs Gastrointestinal: No palpable hepatic or splenomegaly. The abdomen was soft with normal bowel sounds. Lymphatic system: There is matted adenopathy in the left supraclavicular area. The adenopathy fill soft. It is definitely pathologic. Musculoskeletal System: The musculoskeletal system seemed concordant with age. Skin: The skin was negative for jaundice. Neurologic exam: The exam was negative for any focal findings. Deep tendon reflexes were equal and symmetrical. Psychiatric exam: Was essentially negative with normal mood and effect. Extremities: Negative for edema or erythema Laboratory Results Last 24 Hours Test 09/24/16 16:35 09/24/16 17:04 09/24/16 17:08 09/24/16 20:09 Creatine Kinase MB Ratio 1.2 White Blood Count 4.62 K/uL Red Blood Count 2.71 M/uL Hemoglobin 7.5 g/dL Hematocrit 22.2 % Mean Corpuscular Volume 81.9 fL Mean Corpuscular Hemoglobin 27.7 pg Mean Corpuscular Hemoglobin Concent 33.8 g/dl Platelet Count 92 K/uL Mean Platelet Volume 8.7 fL RDW Standard Deviation 56.3 fL RDW Coefficient of Variation 19.8 % Nucleated RBC Absolute Count (auto) 0.16 K/uL Neutrophils % (Manual) 61.0 % Lymphocytes % (Manual) 21.7 % Monocytes % (Manual) 3.5 % Basophils % (Manual) 1.7 % Metamyelocytes % 7.0 % Myelocytes % 1.7 % Promyelocytes % 1.7 % Blast Cells % 1.7 % Nucleated Red Blood Cells % 3.5 % Neutrophils # (Manual) 2.82 K/uL Total Absolute Neutrophils 2.82 K/uL Lymphocytes # (Manual) 1.00 K/uL Total Absolute Lymphocytes 1.00 K/uL Monocytes # (Manual) 0.16 K/uL Basophils # (Manual) 0.08 K/uL Metamyelocytes # 0.32 K/uL Myelocytes # 0.08 K/uL Promyelocytes # 0.08 K/uL Blast Cells # 0.08 K/uL Platelet Estimate DECREASED Polychromasia 1+ Anisocytosis PRESENT Tear Drop Cells 1+ Acanthocytes 1+ Prothrombin Time 13.4 SECONDS Prothromb Time International Ratio 1.2 Activated Partial Thromboplast Time 29.1 SECONDS Partial Thromboplastin Ratio 1.1 Sodium Level 135 mmol/L Potassium Level 4.1 mmol/L Chloride Level 99 mmol/L Carbon Dioxide Level 27 mmol/L Anion Gap 9.0 mmol/L Blood Urea Nitrogen 26 mg/dl Creatinine 1.30 mg/dl Est Creatinine Clear Calc Drug Dose 50.2 ml/min Estimated GFR () 57.7 Estimated GFR (Non- 49.8 BUN/Creatinine Ratio 20.3 Random Glucose 50 mg/dl Calcium Level 9.2 mg/dl Total Bilirubin 0.8 mg/dl Direct Bilirubin 0.3 mg/dl Aspartate Amino Transf (AST/SGOT) 45 U/L Alanine Aminotransferase (ALT/SGPT) 26 U/L Alkaline Phosphatase 150 U/L Total Creatine Kinase 49 U/L Creatine Kinase MB 0.6 ng/ml Total Protein 6.5 gm/dl Albumin 2.5 gm/dl Lipase 88 U/L Thyroid Stimulating Hormone (TSH) 2.830 uIu/ml Bedside Troponin I 0.010 ng/ml [id number] Natriuretic Peptide 4324 pg/ml Bedside Glucose 114 mg/dl Test 09/25/16 04:51 09/25/16 06:43 White Blood Count 5.76 K/uL Red Blood Count 2.85 M/uL Hemoglobin 7.8 g/dL Hematocrit 23.6 % Mean Corpuscular Volume 82.8 fL Mean Corpuscular Hemoglobin 27.4 pg Mean Corpuscular Hemoglobin Concent 33.1 g/dl Platelet Count 83 K/uL Mean Platelet Volume 8.0 fL RDW Standard Deviation 57.7 fL RDW Coefficient of Variation 20.0 % Nucleated RBC Absolute Count (auto) 0.17 K/uL Neutrophils % (Manual) 70.4 % Lymphocytes % (Manual) 9.6 % Monocytes % (Manual) 7.0 % Metamyelocytes % 4.3 % Myelocytes % 8.7 % Nucleated Red Blood Cells % 2.9 % Neutrophils # (Manual) 4.06 K/uL Total Absolute Neutrophils 4.06 K/uL Lymphocytes # (Manual) 0.55 K/uL Total Absolute Lymphocytes 0.55 K/uL Monocytes # (Manual) 0.40 K/uL Metamyelocytes # 0.25 K/uL Myelocytes # 0.50 K/uL Polychromasia 1+ Poikilocytosis PRESENT Anisocytosis PRESENT Ovalocytes 1+ Acanthocytes 1+ Schistocytes OCCASIONAL Sodium Level 137 mmol/L Potassium Level 4.2 mmol/L Chloride Level 102 mmol/L Carbon Dioxide Level 29 mmol/L Anion Gap 6.0 mmol/L Blood Urea Nitrogen 27 mg/dl Creatinine 1.30 mg/dl Est Creatinine Clear Calc Drug Dose 50.2 ml/min Estimated GFR () 57.7 Estimated GFR (Non- 49.8 BUN/Creatinine Ratio 21.1 Random Glucose 85 mg/dl Calcium Level 9.0 mg/dl Magnesium Level 2.1 mg/dl Bedside Glucose 109 mg/dl Assessment & Plan I reviewed the peripheral smear and there is a left shift to the white cells. He is mildly cytopenic in addition. A bone marrow biopsy may help sort through this and we will plan to do this tomorrow. I did describe the procedure to him and he seems to understand. In addition he has palpable abnormal adenopathy in the left supraclavicular area. I went pursue a surgical biopsy of that. CT scans of the chest abdomen pelvis should also be done.
[2016-09-25] MEDS: PANTOprazole INJ 40 MG in SYRINGE 0 ML IV SCH (11:32)
[2016-09-25] MEDS: VANCOMYCIN INJ 1,350 MG in SODIUM CHLORIDE 0.9% 250ML 250 ML IV SCH (12:07)
[2016-09-25] MEDS: NSS + 20MEQ KCL 1000ML 1,000 ML IV SCH ×2 (15:19→15:31)
--- NOTE | 2016-09-25 19:10 | Hospitalist Progress Note ---
Hospitalist Progress Note Date of Service Sep 25, 2016. Subjective patient is a poor historian received blood does not feel any different All Other Systems: Reviewed and Negative Medications Medications (Trade) Dose Ordered Sig/Reyna Route Start Time Stop Time Status Last Admin Dose Admin Pantoprazole Sodium 40 mg/ Syringe 10 ml @ 5 mls/min DAILY@11 IV 09/25/16 11:00 10/25/16 10:59 09/25/16 11:32 5 MLS/MIN Piperacillin Sod/ Tazobactam Sod 3.375 gm/Dextrose 115 ml @ 28.75 mls/ hr Q8@0200,1000,1800 IV 09/25/16 02:00 10/01/16 17:59 09/25/16 18:43 28.75 MLS/HR Vancomycin HCl 1350 mg/Sodium Chloride 277 ml @ 125 mls/hr Q18H IV 09/25/16 12:00 10/01/16 20:34 09/25/16 12:07 125 MLS/HR Methylprednisolone Sodium Succinate 30 mg/Syringe 0.48 ml @ 1.5 mls/min Q8@0400,1200,2000 IV 09/24/16 19:15 10/24/16 19:14 09/25/16 11:32 1.5 MLS/MIN Levofloxacin/Prmx (Levaquin / D5W/ Premixed D5W) 100 ml @ 100 mls/hr DAILY@2000 IV 09/24/16 20:00 10/01/16 19:59 09/24/16 23:19 100 MLS/HR Guaifenesin (Mucinex Contr Rel Tab) 600 mg BID PO 09/24/16 21:00 10/24/16 20:59 09/25/16 07:59 600 MG Ipratropium [place] (Atrovent 0.02% 0.5MG/2.5ML Neb) 0.5 mg Q6R INH 09/24/16 21:00 10/24/16 20:59 09/25/16 07:05 0.5 MG Levalbuterol 1.25 mg 1.25 mg Q6R INH 09/24/16 21:00 10/24/16 20:59 09/25/16 07:05 1.25 MG Vancomycin HCl/ Sodium Chloride (Vancomycin Inj/ Nss 500ml) 546 ml @ 200 mls/hr 2100 ONCE IV 09/24/16 21:00 09/24/16 23:43 DC 09/24/16 20:35 200 MLS/HR Amiodarone HCl (Cordarone Tab) 200 mg DAILY PO 09/25/16 09:00 10/25/16 08:59 09/25/16 07:59 200 MG Levothyroxine Sodium (Synthroid Tab) 25 mcg DAILYBB PO 09/25/16 06:00 10/25/16 05:59 09/25/16 05:52 25 MCG Tamsulosin HCl (Flomax Cap) 0.4 mg DAILY PO 09/25/16 09:00 10/25/16 08:59 09/25/16 07:59 0.4 MG Insulin Aspart (novoLOG ASPART) SLIDING SCALE If C... ACHS SC 09/24/16 21:00 10/24/16 20:59 09/25/16 17:59 8 UNITS Objective Vital Signs Date Time Temp Pulse Resp B/P Pulse Ox O2 Delivery O2 Flow Rate FiO2 09/25/16 16:00 95 Nasal Cannula 2.0 09/25/16 15:26 36.5 68 20 109/73 95 Nasal Cannula 2.0 09/25/16 12:00 95 Nasal Cannula 2.0 09/25/16 11:20 36.9 81 18 101/68 97 09/25/16 11:10 36.9 75 20 100/65 95 Nasal Cannula 2.0 09/25/16 10:30 36.9 80 16 100/68 94 2.0 09/25/16 09:30 36.8 82 2 106/78 92 09/25/16 09:04 37.0 80 20 103/69 94 2.0 09/25/16 08:52 37.1 80 18 101/68 94 2.0 09/25/16 08:20 37.0 83 20 109/63 93 Nasal Cannula 2.0 09/25/16 08:00 95 Nasal Cannula 2.0 09/25/16 07:30 36.8 78 18 115/78 94 2.0 09/25/16 07:05 79 18 95 Nasal Cannula 2.0 09/25/16 06:32 36.6 80 18 110/35 92 2.0 09/25/16 06:09 36.4 77 18 116/77 98 2.0 09/25/16 05:46 36.5 79 18 105/70 96 2.0 09/25/16 04:00 Nasal Cannula 2.0 09/25/16 03:13 36.4 79 20 98/62 94 Nasal Cannula 2.0 09/25/16 02:20 75 18 93 Nasal Cannula 2.0 09/24/16 23:59 91 Nasal Cannula 2.0 09/24/16 23:27 36.6 81 24 108/69 91 Nasal Cannula 2.0 09/24/16 20:00 96 Nasal Cannula 2.0 09/24/16 19:17 36.8 86 16 110/73 96 Nasal Cannula 2.0 Physical Exam General Appearance: WD/WN Eyes: normal inspection Respiratory/Chest: chest non-tender Cardiovascular: regular rate, rhythm Abdomen: normal bowel sounds Extremities: normal range of motion Laboratory Results Last 24 Hours Test 09/24/16 20:09 09/25/16 04:51 09/25/16 06:43 09/25/16 11:16 Bedside Glucose 114 mg/dl 109 mg/dl 243 mg/dl White Blood Count 5.76 K/uL Red Blood Count 2.85 M/uL Hemoglobin 7.8 g/dL Hematocrit 23.6 % Mean Corpuscular Volume 82.8 fL Mean Corpuscular Hemoglobin 27.4 pg Mean Corpuscular Hemoglobin Concent 33.1 g/dl Platelet Count 83 K/uL Mean Platelet Volume 8.0 fL RDW Standard Deviation 57.7 fL RDW Coefficient of Variation 20.0 % Nucleated RBC Absolute Count (auto) 0.17 K/uL Neutrophils % (Manual) 70.4 % Lymphocytes % (Manual) 9.6 % Monocytes % (Manual) 7.0 % Metamyelocytes % 4.3 % Myelocytes % 8.7 % Nucleated Red Blood Cells % 2.9 % Neutrophils # (Manual) 4.06 K/uL Total Absolute Neutrophils 4.06 K/uL Lymphocytes # (Manual) 0.55 K/uL Total Absolute Lymphocytes 0.55 K/uL Monocytes # (Manual) 0.40 K/uL Metamyelocytes # 0.25 K/uL Myelocytes # 0.50 K/uL Polychromasia 1+ Poikilocytosis PRESENT Anisocytosis PRESENT Ovalocytes 1+ Acanthocytes 1+ Schistocytes OCCASIONAL Sodium Level 137 mmol/L Potassium Level 4.2 mmol/L Chloride Level 102 mmol/L Carbon Dioxide Level 29 mmol/L Anion Gap 6.0 mmol/L Blood Urea Nitrogen 27 mg/dl Creatinine 1.30 mg/dl Est Creatinine Clear Calc Drug Dose 50.2 ml/min Estimated GFR () 57.7 Estimated GFR (Non- 49.8 BUN/Creatinine Ratio 21.1 Random Glucose 85 mg/dl Calcium Level 9.0 mg/dl Magnesium Level 2.1 mg/dl Test 09/25/16 11:45 09/25/16 16:02 09/25/16 16:03 Lactate Dehydrogenase 480 U/L Bedside Glucose 315 mg/dl 280 mg/dl Assessment and Plan (1) Anemia Assessment & Plan: tranfuse as needed. Work up in progress Hematology input appreciated. (2) Symptomatic anemia Assessment & Plan: received two units
[2016-09-25] MEDS: ATORVASTATIN 20 MG TAB PO SCH (20:50)
[2016-09-25] MEDS: LEVOFLOXACIN / D5W 500 MG in PREMIXED IN D5W 100 ML IV SCH (21:03)
[2016-09-26] VITALS (9 sets, daily range): BP systolic 126–145; BP diastolic 73–84; PULSE 83–95; TEMP 36.3–36.6; O2SAT 91–100; Ht 177.8 cm; Wt 106.5 kg
[2016-09-26] MEDS: NSS + 20MEQ KCL 1000ML 1,000 ML IV SCH ×3 (01:13→19:41)
[2016-09-26] MEDS: IPRATROPIUM BROMIDE NEB SOLN 0.02% 2.5 ML VIAL INH SCH ×4 (01:27→19:30)
[2016-09-26] MEDS: LEVALBUTEROL 1.25MG/0.5ML NEB INH SCH ×4 (01:27→19:30)
[2016-09-26] MEDS: PIPERACILL/TAZOBAC IV 3.375 GM in DEXTROSE 5% 100ML 100 ML IV SCH ×3 (02:58→17:42)
[2016-09-26] MEDS: METHYLPREDNISOLONE IV 30 MG in SYRINGE 0 ML IV SCH ×3 (04:00→19:41)
[2016-09-26] MEDS: VANCOMYCIN INJ 1,350 MG in SODIUM CHLORIDE 0.9% 250ML 250 ML IV SCH ×2 (06:16→23:26)
[2016-09-26] MEDS: LEVOTHYROXINE 25 MCG TAB PO SCH (06:16)
[2016-09-26 06:54] LABS: HEMATOCRIT 26.9 % (42-52); MEAN CELL VOLUME 81.8 fL (80-100); MEAN CORPUSCULAR HGB CONC 34.2 g/dl (32-36); RED BLOOD COUNT 3.29 M/uL (4.7-6.1); WHITE BLOOD COUNT 8.85 K/uL (4.8-10.8)
[2016-09-26 06:57] LABS: MEAN PLATELET VOLUME 8.6 fL (7.4-10.4); PLATELET COUNT 91 K/uL (130-400)
[2016-09-26 07:25] LABS: BUN/CREATININE RATIO 21.4 (10-20); CALCIUM 8.7 mg/dl (8.5-10.1); CREATININE 1.5 mg/dl (0.60-1.40); POTASSIUM 4.5 mmol/L (3.5-5.1)
[2016-09-26 07:37] LABS: BETA-HYDROXYBUTYRATE 2.06 mg/dL (0.2-2.81)
[2016-09-26] MEDS: INSULIN ASPART 100 UNITS/ML 3 ML PEN SC SCH ×4 (08:54→21:19)
[2016-09-26] MEDS: AMIODARONE 200 MG TAB PO SCH (08:55)
[2016-09-26] MEDS: GUAIFENESIN 600 MG TABCR PO SCH ×2 (08:56→21:13)
[2016-09-26] MEDS: TAMSULOSIN HCL 0.4 MG CAP PO SCH (08:56)
--- NOTE | 2016-09-26 10:32 | Hematology/Oncology Prog Note ---
Hematology/Onc Progress Note Date of Service Sep 26, 2016. Diagnoses Peripheral smear Cytopenias Palpable adenopathy Medications Medications Administered Medications (Trade) Dose Ordered Sig/Reyna Route Start Time Stop Time Status Last Admin Dose Admin Acetaminophen 650 mg 650 mg Q4H PRN PO 09/24/16 17:30 10/24/16 17:29 09/26/16 01:13 650 MG Potassium Chloride/Sodium Chloride 1,000 ml @ 100 mls/hr Q10H IV 09/24/16 19:00 10/24/16 18:59 09/26/16 01:13 100 MLS/HR Pantoprazole Sodium 40 mg/ Syringe 10 ml @ 5 mls/min DAILY@11 IV 09/25/16 11:00 10/25/16 10:59 09/25/16 11:32 5 MLS/MIN Piperacillin Sod/ Tazobactam Sod 3.375 gm/Dextrose 115 ml @ 28.75 mls/ hr Q8@0200,1000,1800 IV 09/25/16 02:00 10/01/16 17:59 09/26/16 02:58 28.75 MLS/HR Vancomycin HCl 1350 mg/Sodium Chloride 277 ml @ 125 mls/hr Q18H IV 09/25/16 12:00 10/01/16 20:34 09/26/16 06:16 125 MLS/HR Methylprednisolone Sodium Succinate 30 mg/Syringe 0.48 ml @ 1.5 mls/min Q8@0400,1200,2000 IV 09/24/16 19:15 10/24/16 19:14 09/26/16 04:00 1.5 MLS/MIN Levofloxacin/Prmx (Levaquin / D5W/ Premixed D5W) 100 ml @ 100 mls/hr DAILY@2000 IV 09/24/16 20:00 10/01/16 19:59 09/25/16 21:03 100 MLS/HR Guaifenesin (Mucinex Contr Rel Tab) 600 mg BID PO 09/24/16 21:00 10/24/16 20:59 09/26/16 08:56 600 MG Ipratropium [place] (Atrovent 0.02% 0.5MG/2.5ML Neb) 0.5 mg Q6R INH 09/24/16 21:00 10/24/16 20:59 09/26/16 06:55 0.5 MG Levalbuterol 1.25 mg 1.25 mg Q6R INH 09/24/16 21:00 10/24/16 20:59 09/26/16 06:55 1.25 MG Piperacillin Sod/ Tazobactam Sod 3.375 gm/Dextrose 115 ml @ 215 mls/hr 1900 ONCE IV 09/24/16 19:00 09/24/16 19:32 DC 09/24/16 19:17 215 MLS/HR Vancomycin HCl/ Sodium Chloride (Vancomycin Inj/ Nss 500ml) 546 ml @ 200 mls/hr 2100 ONCE IV 09/24/16 21:00 09/24/16 23:43 DC 09/24/16 20:35 200 MLS/HR Amiodarone HCl (Cordarone Tab) 200 mg DAILY PO 09/25/16 09:00 10/25/16 08:59 09/26/16 08:55 200 MG Atorvastatin Calcium (Lipitor Tab) 20 mg HS PO 09/24/16 21:00 10/24/16 20:59 09/25/16 20:50 20 MG Levothyroxine Sodium (Synthroid Tab) 25 mcg DAILYBB PO 09/25/16 06:00 10/25/16 05:59 09/26/16 06:16 25 MCG Tamsulosin HCl (Flomax Cap) 0.4 mg DAILY PO 09/25/16 09:00 10/25/16 08:59 09/26/16 08:56 0.4 MG Insulin Aspart (novoLOG ASPART) SLIDING SCALE If C... ACHS SC 09/24/16 21:00 10/24/16 20:59 09/26/16 08:54 14 UNITS Subjective She really denies any new symptoms. His been no overt bleeding. Review of Systems: Constitutional: Negative for night sweats, or fever Eyes: Negative for event change of vision ENT: Negative for epistaxis, nasal discharge, sore throat, or deafness Cardiovascular: Negative for chest pain, palpitations, dizziness, diaphoresis Respiratory: Negative for new shortness of breath,hemoptysis, or purulent cough Gastrointestinal: Negative for diarrhea, hematemesis, melena, nausea, vomiting , or dyspepsia Integumentary (skin): Negative for rash or jaundice discoloration Genitourinary: Negative for urinary frequency, hematuria, or dysuria Neurological: Negative for weakness, seizure activity, headache, or dizziness Lymphatic/Hematologic: Negative for petechiae, bleeding or new adenopathy Musculoskeletal: Negative for new joint or back pain Allergic/Immunologic: Negative for unusual rash or pruritis. Vital Signs Vital Signs Past 12 Hours Date Time Temp Pulse Resp B/P Pulse Ox O2 Delivery O2 Flow Rate FiO2 09/26/16 07:39 36.5 84 16 130/75 94 2.0 09/26/16 06:55 83 18 92 Nasal Cannula 2.0 09/26/16 04:32 Nasal Cannula 2.0 09/26/16 03:42 36.5 87 20 137/79 91 Nasal Cannula 2.0 09/26/16 00:50 Nasal Cannula 2.0 09/25/16 23:49 36.5 82 20 109/65 92 Nasal Cannula 2.0 Physical Exam Constitutional: vitals are stable. Eyes: Eyes are BARBARA EOMI without conjuctival erythema or icterus. ENT: External examination was negative for masses. Neck: Negative for masses or palpable thyromegaly Respiratory: Lung sounds were generally clear bilaterally Cardiovascular: Heart was RRR without significant murmur, gallops aoe rubs Gastrointestinal: No palpable hepatic or splenomegaly. The abdomen was soft with normal bowel sounds. Lymphatic system: Palpable mass at soft lymph nodes left supraclavicular area Musculoskeletal System: The musculoskeletal system seemed concordant with age. Skin: The skin was negative for jaundice. Neurologic exam: The exam was negative for any focal findings. Deep tendon reflexes were equal and symmetrical. Psychiatric exam: Was essentially negative with normal mood and effect. Extremities: Chronic stasis changes distally Laboratory Last 24 Hours Test 09/25/16 11:16 09/25/16 11:45 09/25/16 16:03 09/25/16 20:13 Bedside Glucose 243 mg/dl 280 mg/dl 327 mg/dl Lactate Dehydrogenase 480 U/L Test 09/26/16 06:36 09/26/16 06:56 White Blood Count 8.85 K/uL Red Blood Count 3.29 M/uL Hemoglobin 9.2 g/dL Hematocrit 26.9 % Mean Corpuscular Volume 81.8 fL Mean Corpuscular Hemoglobin 28.0 pg Mean Corpuscular Hemoglobin Concent 34.2 g/dl RDW Standard Deviation 52.5 fL RDW Coefficient of Variation 18.7 % Platelet Count 91 K/uL Mean Platelet Volume 8.6 fL Nucleated RBC Absolute Count (auto) 0.13 K/uL Nucleated Red Blood Cells % 1.5 % Sodium Level 133 mmol/L Potassium Level 4.5 mmol/L Chloride Level 101 mmol/L Carbon Dioxide Level 22 mmol/L Anion Gap 10.0 mmol/L Blood Urea Nitrogen 32 mg/dl Creatinine 1.50 mg/dl Est Creatinine Clear Calc Drug Dose 42.6 ml/min Estimated GFR () 48.5 Estimated GFR (Non- 41.9 BUN/Creatinine Ratio 21.4 Random Glucose 307 mg/dl Calcium Level 8.7 mg/dl Beta-Hydroxybutyric Acid 2.06 mg/dL Bedside Glucose 318 mg/dl Assessment & Plan Blood counts stable. I believe a bone marrow is warranted in this was explained to him. Consent was signed. A bone marrow biopsy was obtained from the patient' s right posterior iliac crest after 1% lidocaine used as local anesthetic. An attempt at aspiration yielded a dry tap. Bone biopsy and marrow was retrieved was retrieved with Jamshedi and touch prep's made. Patient tolerated procedure well. He has matted left supraclavicular adenopathy and we will consult surgery to plan a biopsy. I believe a CT scan of the chest abdomen and pelvis (without IV contrast -creatinine 1.5) is in order -rule out underlying lymphoma.
[2016-09-26] MEDS ORDERED: PERFLUTREN LIPID MICROSPHERE (DEFINITY) IV ONE (11:02)
--- NOTE | 2016-09-26 11:07 | CARDIOLOGY CONSULTATION ---
DATE OF CONSULTATION: 09/26/2016 REFERRING PHYSICIAN: Rene Rivas MD PRIMARY CARE PHYSICIAN: Meño Herbert MD CHIEF COMPLAINT: None. HISTORY OF PRESENT ILLNESS: Mr. Layton De Dios is an 86-year-old gentleman with a known history of cardiac disease, including coronary artery disease, atrial fibrillation and aortic stenosis, who was admitted to [facility] after being discovered to have significant anemia. The patient is characterized as a difficult historian and I believe this adequately describes his interactive abilities. He is not very clear about why he is in the hospital or any symptoms that may have led to his admission. When I asked him if he had been more fatigued lately, he responded with "who told you that" and did not endorse such symptoms. He seems to believe that he resides at a private residence currently and did not describe what would typically be associated with life in a fpc. He claims to be ambulatory around his residence without notable difficulties. He denied significant dizziness or lightheadedness. He did not report any exertional chest discomfort or breathing difficulty. He did, however, describe a fall, which may have been recent. He is not clear on the exact timeframe within which this occurred. He continually represents an episode where he had to crawl on his hands and knees and reach a phone to call for help. What precipitated the fall is not clear. He would not endorse symptoms of syncope or dizziness and feels that this may have simply been due to him being "clumsy." He is unaware of any palpitations. He did not endorse any other symptoms at this time. PAST MEDICAL HISTORY: Significant for, 1. Coronary artery disease, having undergone coronary artery bypass grafting in 1996 involving 2 vessels. 2. Aortic stenosis. The patient had an echocardiogram in his outpatient records from 2014, demonstrating a transaortic velocity of 5.5 m/sec. 3. Atrial fibrillation. This appears to be paroxysmal, currently on therapy with amiodarone. 4. History of congestive heart failure. The patient had preserved left ventricular systolic function on echocardiography in 2014. 5. Mitral regurgitation -- mild. 6. Diabetes mellitus. 7. Bladder cancer, status post resection of invasive papillary carcinoma in 2016. 8. Anemia. The patient presented with hemoglobin of 6.6 in 2016 prior to bladder resection. Most recent hemoglobin was 7 at the time of admission to [facility]. 9. Hypothyroidism. 10. Chronic venous insufficiency. 11. Elevated PSA. 12. Chronic renal insufficiency with baseline creatinine around 1.6. 13. Hypertension. PAST SURGICAL HISTORY: Includes, 1. The aforementioned coronary artery bypass grafting in 1996. 2. Cataract surgery. 3. Cholecystectomy. 4. Laser retinopexy due to retinal detachment. FAMILY HISTORY: Noncontributory due to his advanced age, but there is no history of premature coronary artery disease. SOCIAL HISTORY: The patient denies a history of tobacco abuse and is not a current drinker. 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 I reviewed his records from the [facility]pc including his medical reports. OUTPATIENT MEDICATIONS: Included amiodarone 200 mg daily, amlodipine 5 mg daily, atorvastatin 20 mg at bed time, Synthroid 25 mcg daily, metoprolol succinate 25 mg daily, tamsulosin 0.4 mg daily, and glipizide 10 mg twice daily. MEDICAL ALLERGIES: No known medical allergies. REVIEW OF SYSTEMS: Complete 10-system review of systems was performed and the pertinent positives are noted in the history of present illness and the remainder being negative. He did not report any recent dysuria or hematuria. He claims to be eating well at home and reports cooking his own meal. He was not aware of any help with medication administration at this time. Additionally, he denies any local family. He apparently has a brother in [place] and another brother in [facility] with the sister, who also lives out of state. He has never been and he has no children. He reports chronic edema in his lower extremities. PHYSICAL EXAMINATION: GENERAL: The patient does not appear in any acute distress. He is a pleasant gentleman, who is alert and answered questions appropriately. He was oriented to person and place, but had very little insight into his current medical situation. VITAL SIGNS: Include blood pressure 130/75 with pulse of 84. HEENT: Sclerae are anicteric. His pupils are equal, reactive to light and accommodation. Extraocular movements were intact. NECK: Palpation of the submandibular region did not reveal any significant lymphadenopathy. The carotids are palpable bilaterally. There are no bruits on auscultation. I cannot appreciate any jugular venous distention. Thyroid is not enlarged. LUNGS: Auscultation of both lung jason revealed crackles at the bases bilaterally, but no expiratory wheezing. He had normal respiratory effort without use of accessory muscles. He did have an element of kyphosis. CARDIAC: Revealed a mild high-pitched musical systolic ejection murmur that was late peaking and radiated throughout the precordium. PMI was not markedly displaced on palpation. ABDOMEN: Soft and nontender. EXTREMITIES: Evaluation both wrists revealed radial pulses that were equal in intensity. There is no evidence of cyanosis or clubbing. Evaluation of lower extremities revealed notable edema bilaterally, approximately 1+ to the mid calf as well as significant trophic changes and evidence of venous stasis disease. I cannot appreciate any rashes on exam today. LABORATORY STUDIES: In the [facility] included a sodium 133, potassium of 4.5, BUN was 32, and creatinine was 1.5. White cell count of 8.8, hemoglobin was 9.2, and platelet count was 91. There was evidence of blasts in the peripheral smear. A single view chest x-ray was obtained at the time of admission, which suggested mild pulmonary vascular congestion. A 12-lead EKG was also obtained, which revealed the patient to be in atrial fibrillation and a controlled ventricular response. There was left axis deviation, suggestive of an old inferior infarct and poor R-wave progression in the precordial leads with some nonspecific ST and T-wave changes. ASSESSMENT AND PLAN: 1. Aortic stenosis. The patient undoubtedly has clinical aortic stenosis 2 years ago and had transitioned aortic velocity over 5 m/sec and an examination consistent with severe aortic stenosis. Unfortunately, he is a very poor historian. How unreliable his history has been is unclear. According to the patient, he is not very symptomatic from the aortic stenosis, but his examination would suggest an element of pulmonary vascular congestion and heart failure. This would be an indication for valve replacement. Unfortunately, he has additional comorbidities, which would preclude a referral at this time. Whether he would want a valve procedure is unclear. When I mentioned the option today, he was interested in getting it done immediately provided it was not another open heart surgery. I think he likely could be approached percutaneously for a new valve; however, he may in fact have acute leukemia and certainly has an element of anemia, issues which likely need to be addressed prior to any consideration for a valve procedure. 2. Congestive heart failure. The patient does have an element of pulmonary vascular congestion both on x-ray and exam. N-terminal ProBNP was in the normal range for his age, but he is also hypoxic. Currently being treated for pneumonia, I would suggest attempting a very mild and gentle diuresis in the hopes of improving his oxygenation. An echocardiogram may also be useful in confirming or disputing what has previously been a normal ejection fraction. 3. Atrial fibrillation. The patient appears to be well rate controlled. According to the telemetry, he does cycle in and out of atrial fibrillation and sinus rhythm. Overall, heart rates, however, do not vary much. 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 According to published guidelines, he does meet criteria for systemic anticoagulation; however, this can be deferred given the acute nature of his other illness and potential leukemia. I believe that once his other issues have been addressed and he has no evidence of active bleeding, which may have caused his anemia, we can readdress the issue of anticoagulation. No need for systemic heparinization in the short term. 4. Coronary artery disease. The patient has a history of remote bypass surgery. Currently, he does not describe symptoms of coronary insufficiency or angina. We will see what his left ventricular function looks like on echocardiography. At this point, I do not see any present indication for additional evaluation of coronary artery disease. It should be maintained on aggressive secondary prevention, which would include continuation of atorvastatin at moderate dose and a daily aspirin if it is not felt to be contraindicated by the hematology service given his possible leukemia and mild thrombocytopenia. We will also continue him on his beta ajay at this time. FINAL RECOMMENDATIONS: 1. Echocardiogram. 2. Gentle diuresis in order to affect change in pulmonary vascular congestion and hypoxia. 3. Discontinue amiodarone. 4. Increase Toprol-XL to 50 mg daily. 5. Continue atorvastatin and aspirin unless contraindicated by hematology. 6. Defer systemic anticoagulation at this time. [facility]
[2016-09-26] MEDS ORDERED: NURSING VERBAL MED ORDER ONE (11:30)
--- NOTE | 2016-09-26 11:37 | Medical Consult ---
Consultation Date of Consultation: Sep 26, 2016. Attending Physician: Rene Rivas M.D. History of Present Illness asked to see pt for Lt supraclavicular LN bx- adm with fatigue from [facility]- found to be anemic, cytopenic with significant lymphadenopathy- CT chest pending Past Medical/Surgical History Medical Problems: (1) Anemia Status: Acute (2) Weakness Status: Acute Family History Patient reports no known family medical history. Social History Smoking Status: Unknown if Ever Smoked Smokeless Tobacco Use: No Alcohol Use: none Marital Status: single Housing Status: lives alone Occupation Status: retired Allergies Coded Allergies: Animal Dander (Verified Allergy, Unknown, UNKNOWN, 09/24/16) Current Inpatient Medications Current Inpatient Medications Medications (Trade) Dose Ordered Sig/Reyna Route Start Time Stop Time Status Last Admin Dose Admin Acetaminophen (Tylenol Tab) 650 mg Q4H PRN PO 09/24/16 17:30 10/24/16 17:29 09/26/16 01:13 650 MG Zolpidem Tartrate (Ambien Tab) 5 mg HSZ PRN PO 09/24/16 17:30 10/24/16 17:29 Nitroglycerin (Nitrostat Tab) 0.4 mg UD PRN SL 09/24/16 17:30 10/24/16 17:29 Ondansetron HCl 4 mg 4 mg Q6H PRN IV 09/24/16 17:30 10/24/16 17:29 Potassium Chloride/Sodium Chloride 1,000 ml @ 100 mls/hr Q10H IV 09/24/16 19:00 10/24/16 18:59 09/26/16 01:13 100 MLS/HR Pantoprazole Sodium 40 mg/ Syringe 10 ml @ 5 mls/min DAILY@11 IV 09/25/16 11:00 10/25/16 10:59 09/25/16 11:32 5 MLS/MIN Piperacillin Sod/ Tazobactam Sod 3.375 gm/Dextrose 115 ml @ 28.75 mls/ hr Q8@0200,1000,1800 IV 09/25/16 02:00 10/01/16 17:59 09/26/16 02:58 28.75 MLS/HR Vancomycin HCl 1350 mg/Sodium Chloride 277 ml @ 125 mls/hr Q18H IV 09/25/16 12:00 10/01/16 20:34 09/26/16 06:16 125 MLS/HR Methylprednisolone Sodium Succinate 30 mg/Syringe 0.48 ml @ 1.5 mls/min Q8@0400,1200,1999 IV 09/24/16 19:15 10/24/16 19:14 09/26/16 04:00 1.5 MLS/MIN Levofloxacin/Prmx (Levaquin / D5W/ Premixed D5W) 100 ml @ 100 mls/hr DAILY@1999 IV 09/24/16 20:00 10/01/16 19:59 09/25/16 21:03 100 MLS/HR Guaifenesin (Mucinex Contr Rel Tab) 600 mg BID PO 09/24/16 21:00 10/24/16 20:59 09/26/16 08:56 600 MG Ipratropium [place] (Atrovent 0.02% 0.5MG/2.5ML Neb) 0.5 mg Q6R INH 09/24/16 21:00 10/24/16 20:59 09/26/16 06:55 0.5 MG Levalbuterol (Xopenex 1.25MG/ 0.5ML Neb) 1.25 mg Q6R INH 09/24/16 21:00 10/24/16 20:59 09/26/16 06:55 1.25 MG Ipratropium [place] (Atrovent 0.02% 0.5MG/2.5ML Neb) 0.5 mg Q2H PRN INH 09/24/16 19:00 10/24/16 18:59 Levalbuterol (Xopenex 1.25MG/ 0.5ML Neb) 1.25 mg Q2H PRN INH 09/24/16 19:00 10/24/16 18:59 Piperacillin Sod/ Tazobactam Sod (Consult) 1 ea UD PRN N/A 09/24/16 19:00 10/04/16 18:59 Vancomycin HCl (Consult) 1 ea UD PRN N/A 09/24/16 19:15 10/04/16 19:14 Atorvastatin Calcium (Lipitor Tab) 20 mg HS PO 09/24/16 21:00 10/24/16 20:59 09/25/16 20:50 20 MG Levothyroxine Sodium (Synthroid Tab) 25 mcg DAILYBB PO 09/25/16 06:00 10/25/16 05:59 09/26/16 06:16 25 MCG Tamsulosin HCl (Flomax Cap) 0.4 mg DAILY PO 09/25/16 09:00 10/25/16 08:59 09/26/16 08:56 0.4 MG Insulin Aspart (novoLOG ASPART) SLIDING SCALE If C... ACHS SC 09/24/16 21:00 10/24/16 20:59 09/26/16 08:54 14 UNITS Glucose (Glucose 40% Gel) UD PRN PO 09/24/16 20:00 10/24/16 19:59 Glucose (Glucose Chew Tab) 1 tabs UD PRN PO 09/24/16 20:00 10/24/16 19:59 Dextrose (Dextrose 50% 50ML Syringe) 50 ml UD PRN IV 09/24/16 20:00 10/24/16 19:59 Glucagon (Glucagon Inj) 1 mg UD PRN SQ 09/24/16 20:00 10/24/16 19:59 Metoprolol Succinate (Toprol Xl Tab) 25 mg QAM PO 09/26/16 12:00 10/26/16 11:59 Furosemide (Lasix Tab) 20 mg QAM PO 09/26/16 12:00 10/26/16 11:59 Review of Systems Constitutional: No chills, No fever Eyes: No worsening of vision Respiratory: + cough, No shortness of breath Cardiovascular: No chest pain Abdomen: No nausea, No pain, No vomiting Musculoskeletal: No joint pain Genitourinary - Male: No dysuria Psychiatric: No anxiety Endocrine: + fatigue Integumentary: No rash Physical Exam Date Time Temp Pulse Resp B/P Pulse Ox O2 Delivery O2 Flow Rate FiO2 09/26/16 11:29 36.6 86 16 131/81 93 2.0 09/26/16 07:39 36.5 84 16 130/75 94 2.0 09/26/16 06:55 83 18 92 Nasal Cannula 2.0 09/26/16 04:32 Nasal Cannula 2.0 09/26/16 03:42 36.5 87 20 137/79 91 Nasal Cannula 2.0 09/26/16 00:50 Nasal Cannula 2.0 09/25/16 23:49 36.5 82 20 109/65 92 Nasal Cannula 2.0 09/25/16 21:44 82 18 92 Nasal Cannula 2.0 09/25/16 20:00 95 Nasal Cannula 2.0 09/25/16 19:30 36.4 80 19 107/66 95 Nasal Cannula 2.0 09/25/16 16:00 95 Nasal Cannula 2.0 09/25/16 15:26 36.5 68 20 109/73 95 Nasal Cannula 2.0 09/25/16 12:00 95 Nasal Cannula 2.0 General Appearance: no apparent distress Eyes: sclerae normal Neck: + adenopathy present (Lt supraclavicular) Respiratory/Chest: no respiratory distress Cardiovascular: regular rate, rhythm Abdomen/GI: soft Extremities/Musculoskelatal: no pedal edema Neurologic/Psych: alert Skin: normal color Laboratory Results Last 24 Hours Test 09/25/16 11:45 09/25/16 16:03 09/25/16 20:13 09/26/16 06:36 Lactate Dehydrogenase 480 U/L Bedside Glucose 280 mg/dl 327 mg/dl White Blood Count 8.85 K/uL Red Blood Count 3.29 M/uL Hemoglobin 9.2 g/dL Hematocrit 26.9 % Mean Corpuscular Volume 81.8 fL Mean Corpuscular Hemoglobin 28.0 pg Mean Corpuscular Hemoglobin Concent 34.2 g/dl RDW Standard Deviation 52.5 fL RDW Coefficient of Variation 18.7 % Platelet Count 91 K/uL Mean Platelet Volume 8.6 fL Nucleated RBC Absolute Count (auto) 0.13 K/uL Nucleated Red Blood Cells % 1.5 % Sodium Level 133 mmol/L Potassium Level 4.5 mmol/L Chloride Level 101 mmol/L Carbon Dioxide Level 22 mmol/L Anion Gap 10.0 mmol/L Blood Urea Nitrogen 32 mg/dl Creatinine 1.50 mg/dl Est Creatinine Clear Calc Drug Dose 42.6 ml/min Estimated GFR () 48.5 Estimated GFR (Non- 41.9 BUN/Creatinine Ratio 21.4 Random Glucose 307 mg/dl Calcium Level 8.7 mg/dl Beta-Hydroxybutyric Acid 2.06 mg/dL Test 09/26/16 06:56 Bedside Glucose 318 mg/dl Assessment & Plan 09/26/16- adm with fatigue- cytopenic, bonemarrow bx pending. For LT supraclavicular LN bx on Mon am- in [place]- probable local/ sedation
[2016-09-26] MEDS: PANTOprazole INJ 40 MG in SYRINGE 0 ML IV SCH (11:50)
[2016-09-26] MEDS ORDERED: LANTUS PER UNIT CHARGE SQ ONE (12:30)
[2016-09-26] MEDS: METOPROLOL SUCC 25MG EXT REL TAB PO SCH (13:29)
[2016-09-26] MEDS: FUROSEMIDE 20 MG TAB PO SCH (13:29)
--- NOTE | 2016-09-26 15:36 | DIAGNOSTIC IMAGING REPORT ---
CHEST CT WITHOUT CONTRAST CT DOSE: HISTORY: Lymphadenopathy. TECHNIQUE: Multiaxial CT images of the chest were performed without contrast. COMPARISON: Chest 09/24/2016. FINDINGS: There is left cervical/supraclavicular, left axillary, mediastinal, bilateral hilar, periesophageal, and paraspinal lymphadenopathy. Dominant lymph node is seen within the axilla and measures 5.0 x 3.0 cm. The left supraclavicular lymphadenopathy results in mild right upper tracheal deviation. Trace bilateral pleural effusions. Upper abdominal and retrocrural lymphadenopathy is also identified. Normal caliber thoracic aorta. The heart is mildly enlarged. Aortic valve and coronary calcifications. Mild left chest wall subcutaneous edema. Poststernotomy changes. No pneumothorax. The central airways are patent. Bibasilar linear densities consistent with subsegmental atelectasis. Motion artifact within the lungs results in suboptimal evaluation. Calcified right infrahilar lymph node. Small patchy groundglass airspace opacities within the right upper lobe anteriorly. A 6 mm nodule along the right minor fissure on image 129. There is an irregular 11 mm groundglass nodule within the right lung apex. Mild acute superior endplate compression fracture at L1. Old superior endplate compression fractures at T6 and T12. Multiple tiny lytic lesions seen throughout the visualized osseous structures. IMPRESSION: 1. Extensive lymphadenopathy within the chest as described above. 2. Small patchy groundglass airspace opacities within the right upper lobe. This can be due to mild congestive change or a pneumonitis. 3. Small bilateral pleural effusions. 4. Cardiomegaly. 5. An 11 mm groundglass nodule within the right lung apex. Six-month chest CT follow-up is recommended to ensure stability and to exclude a low-grade bronchogenic malignancy. 6. Multiple tiny lytic lesions seen throughout the visualized osseous structures which could be related to the leukemia or possibly due to multiple myeloma. 7. Mild acute superior endplate compression fracture at L1. Old superior endplate compression fractures at T6 and T12. Electronically signed by: Bogdan Diaz M.D. 09/26/2016 3:33 PM Dictated Date/Time: 09/26/2016 3:22 PM
--- NOTE | 2016-09-26 15:40 | DIAGNOSTIC IMAGING REPORT ---
CT ABD/PELVIS ORAL CONT ONLY CT DOSE: 2398.84 mGy.cm CLINICAL HISTORY: Leukemia. Symptomatic anemia. Evaluate for lymphadenopathy. TECHNIQUE: Axial images of the abdomen and pelvis were obtained without IV contrast. Oral contrast was administered. COMPARISON STUDY: None. FINDINGS: The chest will be reported separately. Evaluation of the abdomen and pelvis is suboptimal on this unenhanced exam. Unenhanced images of the liver, adrenal glands and pancreas are normal. There is borderline splenomegaly. There are numerous enlarged retrocrural, para-aortic and bilateral iliac lymph nodes. An index retrocrural node measures 3.2 x 2.7 cm. An index left paraaortic lymph node shown on image 42 of 99 measures 3.7 x 3.2 cm. An index left external iliac node measures 3.6 x 3.1 cm. There is a moderate amount of stool within the colon. There is no evidence for a bowel obstruction. The prostate is markedly enlarged. There is a Sears balloon within the bladder which is decompressed. There is no hydronephrosis. A 4 mm right renal calculus is present. Small calculi within the bladder are noted. There is anasarca. Note is made of mild compression deformities of T12, L1 and L4. There are innumerable lucent/lytic lesions throughout visualized skeletal structures. IMPRESSION: 1. Extensive retrocrural, paraaortic and bilateral iliac lymphadenopathy. This is consistent with a lymphoproliferative disorder such as lymphoma/leukemia. 2. Innumerable lytic foci within visualized skeletal structures which could be related to leukemia. Myeloma could appear similar. Mild compression fractures of T12, L1 and L4 which are likely acute to subacute. 3. Anasarca. 4. Moderate amount of stool within the colon. No bowel obstruction. 5. Marked prostatic enlargement. Electronically signed by: Jm Albrecht M.D. 09/26/2016 3:38 PM Dictated Date/Time: 09/26/2016 3:23 PM
--- NOTE | 2016-09-26 15:41 | ECHOCARDIOGRAM REPORT ---
*NOTICE TO RECEIVING REPUBLICAN AGENCY This information is strictly Confidential and protected under [place] law. [place] law prohibits you from making any further disclosure of this information unless further disclosure is expressly permitted by the written consent of the person to whom it pertains or is authorized by law. A general authorization for the release of medical or other information is not sufficient for this purpose. Hospital accepts no responsibility if the information is made available to any other person, INCLUDING THE PATIENT. Interpretation Summary * Name: TAI MONAHAN V Study Date: 09/26/2016 10:26 AM BP: 131/81 mmHg * Patient Location: [facility] HR: 86 * : 1930 (M/d/yyyy) Gender: Male Height: 70 in * Age: 86 yrs Ethnicity: [place] Weight: 220 lb * Referring Physician: APOLONIA SHEPHERD * Performed By: Sada Hansen RDCS * * Reason For Study: AFIB * BSA: 2.2 m2 * Normal biventricular systolic function. * Mild concentric left ventricular hypertrophy. * Mild left atrial dilatation. * Severe calcific aortic stensosis. * Trace aortic regurgitation. * Trace pulmonic and tricuspid regurgitation. * Mild mitral regurgitation. * -- Conclusions -- * There is severe calcific aortic valve stenosis. Procedure Details * A contrast injection of Definity was performed to improve assessment of LV function. * Contrast was injected into an intravenous site in the left arm. * One vial of Definity ultrasound contrast was diluted in normal saline to a total volume of 10 ml. A total of '2' ml of solution was administered during imaging. * Lot # [id number] of Definity utilized for procedure. * Expiration date SEP 30. * The attending nurse who injected the contrast agent was DAYANNA LEDEZMA RN. Left Ventricle * The left ventricle is normal in size. * There is mild concentric left ventricular hypertrophy. * Ejection Fraction = 55-60%. * Left ventricular systolic function is normal. * The left ventricular wall motion is normal. Right Ventricle * The right ventricle is normal in size and function. Atria * The left atrium is mildly dilated. * Right atrial size is normal. * No ASD detected; PFO is not assessed. Mitral Valve * There is moderate to severe mitral annular calcification. * There is no mitral valve stenosis. * There is mild mitral regurgitation. Tricuspid Valve * The tricuspid valve is not well visualized, but is grossly normal. * There is no tricuspid stenosis. * There is trace tricuspid regurgitation. * Right ventricular systolic pressure is normal. Aortic Valve * The aortic valve is trileaflet. * There is severe calcific aortic valve stenosis. * Aortic valve area was calculated at 0.67 cm\S\2 using the continuity equation. * Dimensionless index 0.21. * Trace aortic regurgitation. Pulmonic Valve * The pulmonic valve is not well visualized. * The pulmonary valve is inadequately visualized, but the Doppler data is adequate for interpretation. * There is no pulmonic valvular stenosis. * Trace pulmonic valvular regurgitation. Great Vessels * The aortic root is normal size. Pericardium/Pleural * There is no pericardial effusion. Great Vessels * Normal inferior vena cava diameter and respiratory variation suggests normal central venous pressure. MMode 2D Measurements and Calculations IVSd 1.4 cm IVSs 1.9 cm LVIDd 4.3 cm LVIDs 2.9 cm LVPWd 1.4 cm LVPWs 1.5 cm IVS/LVPW 1.1 FS 32.0 % EDV(Teich) 82.4 ml ESV(Teich) 32.6 ml EF(Teich) 60.4 % EDV(cubed) 78.7 ml ESV(cubed) 24.7 ml EF(cubed) 68.6 % % IVS thick 30.3 % % LVPW thick 9.6 % LV mass(C)d 232.1 grams LV mass(C)dI 106.8 grams/m\S\2 LV mass(C)s 187.0 grams LV mass(C)sI 86.0 grams/m\S\2 SV(Teich) 49.8 ml SI(Teich) 22.9 ml/m\S\2 SV(cubed) 54.0 ml SI(cubed) 24.8 ml/m\S\2 Ao root diam 3.6 cm Ao root area 10.3 cm\S\2 LA dimension 4.2 cm LA/Ao 1.2 LVOT diam 2.0 cm LVOT area 3.2 cm\S\2 LVAd ap4 30.4 cm\S\2 LVLd ap4 8.5 cm EDV(MOD-sp4) 87.0 ml EDV(sp4-el) 92.2 ml LVAs ap4 18.6 cm\S\2 LVLs ap4 6.8 cm ESV(MOD-sp4) 41.5 ml ESV(sp4-el) 43.3 ml EF(MOD-sp4) 52.3 % EF(sp4-el) 53.0 % LVAd ap2 35.5 cm\S\2 LVLd ap2 8.6 cm EDV(MOD-sp2) 120.1 ml EDV(sp2-el) 124.5 ml LVAs ap2 21.1 cm\S\2 LVLs ap2 7.3 cm ESV(MOD-sp2) 49.1 ml ESV(sp2-el) 51.7 ml EF(MOD-sp2) 59.1 % EF(sp2-el) 58.5 % LVLd %diff 0.51 % EDV(MOD-bp) 102.4 ml LVLs %diff 7.2 % ESV(MOD-bp) 47.2 ml EF(MOD-bp) 53.9 % SV(MOD-sp4) 45.5 ml SI(MOD-sp4) 20.9 ml/m\S\2 SV(MOD-sp2) 71.0 ml SI(MOD-sp2) 32.7 ml/m\S\2 SV(MOD-bp) 55.2 ml SI(MOD-bp) 25.4 ml/m\S\2 SV(sp4-el) 48.9 ml SI(sp4-el) 22.5 ml/m\S\2 SV(sp2-el) 72.8 ml SI(sp2-el) 33.5 ml/m\S\2 Doppler Measurements and Calculations MV E max nadya 119.1 cm/sec MV dec time 0.22 sec Ao V2 max 470.3 cm/sec Ao max PG 88.5 mmHg Ao max PG (full) 84.6 mmHg Ao V2 mean 349.8 cm/sec Ao mean PG 54.4 mmHg Ao mean PG (full) 52.1 mmHg Ao V2 VTI 108.8 cm NATANAEL(I,A) 0.66 cm\S\2 N[place]EL(I,D) 0.66 cm\S\2 N[place]EL(V,A) 0.67 cm\S\2 NATANAEL(V,D) 0.67 cm\S\2 LV V1 max PG 3.8 mmHg LV V1 mean PG 2.3 mmHg LV V1 max 98.1 cm/sec LV V1 mean 71.7 cm/sec LV V1 VTI 22.5 cm SV(Ao) 1115.9 ml SI(Ao) 513.4 ml/m\S\2 SV(LVOT) 72.3 ml SI(LVOT) 33.3 ml/m\S\2 TR max nadya 221.3 cm/sec
[2016-09-26] MEDS: LEVOFLOXACIN / D5W 500 MG in PREMIXED IN D5W 100 ML IV SCH (19:41)
--- NOTE | 2016-09-26 20:24 | Hospitalist Progress Note ---
Hospitalist Progress Note Date of Service Sep 26, 2016. Subjective patient with no complaints All Other Systems: Reviewed and Negative Medications Medications (Trade) Dose Ordered Sig/Reyna Route Start Time Stop Time Status Last Admin Dose Admin Metoprolol Succinate (Toprol Xl Tab) 25 mg QAM PO 09/26/16 12:00 10/26/16 11:59 09/26/16 13:29 25 MG Furosemide (Lasix Tab) 20 mg QAM PO 09/26/16 12:00 10/26/16 11:59 09/26/16 13:29 20 MG Perflutren Lipid Microsphere (Definity) 2 ml ONE ONCE IV 09/26/16 11:02 09/26/16 11:03 DC 09/26/16 11:03 2 ML Insulin Glargine (Lantus Per Unit) 15 units NOW ONCE SQ 09/26/16 12:30 09/26/16 12:31 DC 09/26/16 14:02 15 UNITS Objective Vital Signs Date Time Temp Pulse Resp B/P Pulse Ox O2 Delivery O2 Flow Rate FiO2 09/26/16 19:36 36.5 90 20 145/79 100 Room Air 09/26/16 19:30 91 16 95 Nasal Cannula 3.0 09/26/16 18:00 Nasal Cannula 2.0 09/26/16 15:46 36.3 90 18 126/73 98 Room Air 09/26/16 13:52 89 18 96 Nasal Cannula 2.0 09/26/16 13:30 Nasal Cannula 2.0 09/26/16 11:29 36.6 86 16 131/81 93 2.0 09/26/16 07:39 36.5 84 16 130/75 94 2.0 09/26/16 07:10 Nasal Cannula 2.0 09/26/16 06:55 83 18 92 Nasal Cannula 2.0 09/26/16 04:32 Nasal Cannula 2.0 09/26/16 03:42 36.5 87 20 137/79 91 Nasal Cannula 2.0 09/26/16 00:50 Nasal Cannula 2.0 09/25/16 23:49 36.5 82 20 109/65 92 Nasal Cannula 2.0 09/25/16 21:44 82 18 92 Nasal Cannula 2.0 Physical Exam General Appearance: WD/WN, no apparent distress Eyes: normal inspection Neck: trachea midline Respiratory/Chest: normal breath sounds Cardiovascular: regular rate, rhythm Abdomen: normal bowel sounds, non tender, soft Extremities: normal range of motion Neurologic/Psychiatric: alert Laboratory Results Last 24 Hours Test 09/26/16 06:36 09/26/16 06:56 09/26/16 11:15 09/26/16 16:29 White Blood Count 8.85 K/uL Red Blood Count 3.29 M/uL Hemoglobin 9.2 g/dL Hematocrit 26.9 % Mean Corpuscular Volume 81.8 fL Mean Corpuscular Hemoglobin 28.0 pg Mean Corpuscular Hemoglobin Concent 34.2 g/dl RDW Standard Deviation 52.5 fL RDW Coefficient of Variation 18.7 % Platelet Count 91 K/uL Mean Platelet Volume 8.6 fL Nucleated RBC Absolute Count (auto) 0.13 K/uL Nucleated Red Blood Cells % 1.5 % Sodium Level 133 mmol/L Potassium Level 4.5 mmol/L Chloride Level 101 mmol/L Carbon Dioxide Level 22 mmol/L Anion Gap 10.0 mmol/L Blood Urea Nitrogen 32 mg/dl Creatinine 1.50 mg/dl Est Creatinine Clear Calc Drug Dose 42.6 ml/min Estimated GFR () 48.5 Estimated GFR (Non- 41.9 BUN/Creatinine Ratio 21.4 Random Glucose 307 mg/dl Calcium Level 8.7 mg/dl Beta-Hydroxybutyric Acid 2.06 mg/dL Bedside Glucose 318 mg/dl 359 mg/dl 324 mg/dl Assessment and Plan (1) Anemia Assessment & Plan: Patient will have a bone marrow and has supraclavicular nodes and will have lymph node resection on Thursday. (2) Symptomatic anemia Assessment & Plan: transfuse if needed (3) Chronic a-fib Assessment & Plan: hold off on anticoagulation based upon his other more active issues (4) Critical stenosis of aortic valve Assessment & Plan: Cardiology input appreciated. His oncology disease will first be discovered and will place his aortic valular disease in perspective.
[2016-09-26] MEDS: ATORVASTATIN 20 MG TAB PO SCH (21:13)
[2016-09-27] VITALS (9 sets, daily range): BP systolic 129–152; BP diastolic 80–98; PULSE 86–100; TEMP 36.2–36.7; O2SAT 92–98
[2016-09-27] MEDS: LEVALBUTEROL 1.25MG/0.5ML NEB INH SCH ×3 (02:06→13:55)
[2016-09-27] MEDS: IPRATROPIUM BROMIDE NEB SOLN 0.02% 2.5 ML VIAL INH SCH ×3 (02:06→13:55)
[2016-09-27] MEDS: PIPERACILL/TAZOBAC IV 3.375 GM in DEXTROSE 5% 100ML 100 ML IV SCH ×2 (02:17→09:59)
[2016-09-27] MEDS: METHYLPREDNISOLONE IV 30 MG in SYRINGE 0 ML IV SCH (04:37)
[2016-09-27] MEDS: LEVOTHYROXINE 25 MCG TAB PO SCH (05:43)
[2016-09-27] MEDS: NSS + 20MEQ KCL 1000ML 1,000 ML IV SCH ×2 (05:58→15:55)
[2016-09-27 05:59] LABS: HEMATOCRIT 30.1 % (42-52); MEAN CELL VOLUME 83.6 fL (80-100); MEAN CORPUSCULAR HEMOGLOBIN 27.8 pg (25-34); MEAN CORPUSCULAR HGB CONC 33.2 g/dl (32-36); WHITE BLOOD COUNT 8.85 K/uL (4.8-10.8)
[2016-09-27 06:03] LABS: PLATELET COUNT 88 K/uL (130-400)
[2016-09-27 06:26] LABS: BUN/CREATININE RATIO 19.1 (10-20); CALCIUM 8.6 mg/dl (8.5-10.1); CREATININE 1.4 mg/dl (0.60-1.40); POTASSIUM 4.7 mmol/L (3.5-5.1)
[2016-09-27] MEDS: GUAIFENESIN 600 MG TABCR PO SCH ×2 (07:28→21:27)
[2016-09-27] MEDS: METOPROLOL SUCC 25MG EXT REL TAB PO SCH (07:28)
[2016-09-27] MEDS: FUROSEMIDE 20 MG TAB PO SCH (07:29)
[2016-09-27] MEDS: TAMSULOSIN HCL 0.4 MG CAP PO SCH (07:29)
[2016-09-27] MEDS: INSULIN ASPART 100 UNITS/ML 3 ML PEN SC SCH ×4 (08:33→21:30)
--- NOTE | 2016-09-27 09:07 | Anesthesiology Progress Note ---
Anesthesia Progress Note Date of Service Sep 27, 2016. Progress Notes The patient is an 86 y/o male scheduled for L supraclavicular lymph node biopsy with Dr. Kuhn on 09/29/16. He was admitted on 09/24/16 due to anemia and acute respiratory failure. He was transfused 2 units PRBC and started on antibiotics for possible pneumonia and given Lasix for CHF. On chest CT he has been found to have extensive lymphadenopathy which may be a possible lymphoma or leukemia. He also has severe aortic stenosis by echocardiogram. Other PMH includes CAD s/p CABG, HTN, afib, dyslipidemia, type 2 DM, hypothyroidism, CKD, BPH, obesity , and thrombocytopenia. The patient's CXR on admission showed developing CHF. His EKG showed afib/flutter that was rate controlled HR 84. His echo showed EF 55-60%, mild LVH, mild L atrial dilation, mild MR, and severe . Labs are significant for hgb 10 (after 2 units), plt 88, BUN 27, Cr 1.4, and BSG 284 (he is on a sliding scale for insulin). The patient's vitals are stable. His SpO2 is 98 on 2 L NC. On exam the patient was sitting pleasantly in bed. He is a poor historian and is very inquisitive although he appeared oriented enough to consent to anesthesia for the procedure. He has a thick alcaraz with okay neck extension. Airway is MP 3 with 3 FB TMD. Teeth are intact. Lungs were clear bilaterally. He had a 3/6 systolic murmur. Carotids were negative for bruits. His legs were purple with pitting edema. The patient is an ASA 4. He was consented to undergo MAC sedation for the procedure. He would be a high risk for general anesthesia due to pulmonary concerns as well as the severe . The patient was counseled to remain NPO after midnight tomorrow.
[2016-09-27] MEDS: PANTOprazole INJ 40 MG in SYRINGE 0 ML IV SCH (10:22)
[2016-09-27] MEDS ORDERED: NURSING VERBAL MED ORDER ONE ×2 (11:45→20:30)
[2016-09-27] MEDS ORDERED: VANCOMYCIN TROUGH SCH (17:30)
--- NOTE | 2016-09-27 17:40 | Hospitalist Progress Note ---
Hospitalist Progress Note Date of Service Sep 27, 2016. Subjective Pt evaluation today including: conversation w/ patient, conversation w/ family , physical exam, conversation w/ [employer] consultant Pain: 0 Patient is an unreliable historian. I spoke his brother who is Rod De Dios. 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 Since he does not have the capacity to understand the choices, all procedures should be explained to Rod De Dios. The above is his cell phone. He is the [employer]. Additional Comments: unreliable Medications Last Resulted CBC 09/27/16 05:27 Last Resulted BMP 09/27/16 05:27 Objective Vital Signs Date Time Temp Pulse Resp B/P Pulse Ox O2 Delivery O2 Flow Rate FiO2 09/27/16 16:00 Nasal Cannula 2.0 09/27/16 15:23 36.4 94 18 129/85 93 Room Air 09/27/16 13:55 90 16 98 Nasal Cannula 2.0 09/27/16 12:32 36.3 86 20 152/98 97 Nasal Cannula 2.0 09/27/16 12:00 Nasal Cannula 2.0 09/27/16 08:00 36.4 99 20 147/80 98 Nasal Cannula 2.0 09/27/16 08:00 Nasal Cannula 2.0 09/27/16 07:03 97 16 97 Nasal Cannula 2.0 09/27/16 04:00 Nasal Cannula 2.0 09/27/16 03:20 36.5 100 22 133/83 96 Nasal Cannula 2.0 09/27/16 02:06 90 16 96 Nasal Cannula 2.0 09/26/16 23:59 Nasal Cannula 2.0 09/26/16 23:59 36.5 95 22 128/84 95 Nasal Cannula 2.0 09/26/16 19:36 36.5 90 20 145/79 100 Room Air 09/26/16 19:30 91 16 95 Nasal Cannula 3.0 09/26/16 19:30 Nasal Cannula 09/26/16 18:00 Nasal Cannula 2.0 Physical Exam General Appearance: no apparent distress Neck: + adenopathy present Respiratory/Chest: lungs clear Cardiovascular: regular rate, rhythm Abdomen: normal bowel sounds, non tender, soft Extremities: normal range of motion, normal inspection Neurologic/Psychiatric: alert (unable to make his own decisions) Laboratory Results Last 24 Hours Test 09/26/16 20:49 09/27/16 05:27 09/27/16 06:40 09/27/16 07:39 Bedside Glucose 281 mg/dl 284 mg/dl White Blood Count 8.85 K/uL Red Blood Count 3.60 M/uL Hemoglobin 10.0 g/dL Hematocrit 30.1 % Mean Corpuscular Volume 83.6 fL Mean Corpuscular Hemoglobin 27.8 pg Mean Corpuscular Hemoglobin Concent 33.2 g/dl RDW Standard Deviation 55.0 fL RDW Coefficient of Variation 19.0 % Platelet Count 88 K/uL Mean Platelet Volume 9.0 fL Nucleated RBC Absolute Count (auto) 0.29 K/uL Nucleated Red Blood Cells % 3.3 % Sodium Level 134 mmol/L Potassium Level 4.7 mmol/L Chloride Level 103 mmol/L Carbon Dioxide Level 23 mmol/L Anion Gap 8.0 mmol/L Blood Urea Nitrogen 27 mg/dl Creatinine 1.40 mg/dl Est Creatinine Clear Calc Drug Dose 45.6 ml/min Estimated GFR () 52.7 Estimated GFR (Non- 45.5 BUN/Creatinine Ratio 19.1 Random Glucose 260 mg/dl Calcium Level 8.6 mg/dl Test 09/27/16 11:12 09/27/16 16:45 Bedside Glucose 300 mg/dl 257 mg/dl Diagnostic Results Patient: TAI DE DIOS V [facility] [facility] Rec: [id number] Address2: Acct ID: [id number] [facility] Zip: [place] [address] Date: 1930 Sex: M Room/Bed: [facility] Ref Phy: Bharathi Benavides D.O. SC: Veronica Att Phy: Rene Rivas M.D. Report #: [id number] Angie Phy: Terrence Gaona M.D. Test: APWOR Admit Phy: Rene Rivas M.D. Mental Health Program Manager: STEPHEN Interpreting Phy: Jm Albrecht MD Diagnosis: LEUKEMIA, ACUTE, SYMPTOMATIC ANEMIA Ordering Phy: Trevro Paris D.O. Service Date: 09/26/16 Admit Date: 09/25/1703/12/17 MNE: [id number] CONF: DICTATED BY: Jm Albrecht MD]] CC: Bharathi Benavides D.O. Balaban, Edward P., D.O. Pasquariello, Rick D M.D. Roscoe, Brandon M. M.D. Endcc: [~ rep ct add3]] CT ABD/PELVIS ORAL CONT ONLY CT DOSE: 2398.84 mGy.cm CLINICAL HISTORY: Leukemia. Symptomatic anemia. Evaluate for lymphadenopathy. TECHNIQUE: Axial images of the abdomen and pelvis were obtained without IV contrast. Oral contrast was administered. COMPARISON STUDY: None. FINDINGS: The chest will be reported separately. Evaluation of the abdomen and pelvis is suboptimal on this unenhanced exam. Unenhanced images of the liver, adrenal glands and pancreas are normal. There is borderline splenomegaly. There are numerous enlarged retrocrural, para-aortic and bilateral iliac lymph nodes. An index retrocrural node measures 3.2 x 2.7 cm. An index left paraaortic lymph node shown on image 42 of 99 measures 3.7 x 3.2 cm. An index left external iliac node measures 3.6 x 3.1 cm. There is a moderate amount of stool within the colon. There is no evidence for a bowel obstruction. The prostate is markedly enlarged. There is a Sears balloon within the bladder which is decompressed. There is no hydronephrosis. A 4 mm right renal calculus is present. Small calculi within the bladder are noted. There is anasarca. Note is made of mild compression deformities of T12, L1 and L4. There are innumerable lucent/lytic lesions throughout visualized skeletal structures. IMPRESSION: 1. Extensive retrocrural, paraaortic and bilateral iliac lymphadenopathy. This is consistent with a lymphoproliferative disorder such as lymphoma/leukemia. 2. Innumerable lytic foci within visualized skeletal structures which could be related to leukemia. Myeloma could appear similar. Mild compression fractures of T12, L1 and L4 which are likely acute to subacute. 3. Anasarca. 4. Moderate amount of stool within the colon. No bowel obstruction. 5. Marked prostatic enlargement. Electronically signed by: Jm Albrecht M.D. 09/26/2016 3:38 PM Dictated Date/Time: 09/26/2016 3:23 PM The status of this report is Signed. Draft = Not yet reviewed or approved by Radiologist. Signed = Reviewed and approved by Radiologist. <AttendingPhy>Rene Rivas M.D.</AttendingPhy> <FamilyPhy>Bharathi Benavides D.O.</FamilyPhy> <PrimaryPhy>Terrence Gaona M.D.</PrimaryPhy> < UnitNumber>[id number]</UnitNumber> <VisitNumber>[id number]</VisitNumber> < PatientName>TAI DE DIOS V</PatientName> <DateOfBirth>1930</ DateOfBirth> <Location>C.2T</Location> <ServiceDate>09/24/16</ServiceDate> <MNE> ESINDI</MNE> <OrderingPhy>Trevor Paris D.O.</OrderingPhy> <OrderingPhyMNE> f rep Patient Name: TAI DE DIOS V Unit Number: [id number] Dictated: 09/26/161521 Transcribed: 09/26/16 152 PA Printed Date/Time: [~ rep prt dt]/[~ rep prt tm] [~ rep ct labl] - [~ rep ct ivnm] [facility] [place] [place] [address] Dictated: 09/26/161521 Transcribed: 09/26/16 152 PAJ Printed Date/Time: [~ rep prt dt]/[~ rep prt tm] [~ rep ct labl] - [~ rep ct ivnm] CHEST CT WITHOUT CONTRAST CT DOSE: HISTORY: Lymphadenopathy. TECHNIQUE: Multiaxial CT images of the chest were performed without contrast. COMPARISON: Chest 09/24/2016. FINDINGS: There is left cervical/supraclavicular, left axillary, mediastinal, bilateral hilar, periesophageal, and paraspinal lymphadenopathy. Dominant lymph node is seen within the axilla and measures 5.0 x 3.0 cm. The left supraclavicular lymphadenopathy results in mild right upper tracheal deviation. Trace bilateral pleural effusions. Upper abdominal and retrocrural lymphadenopathy is also identified. Normal caliber thoracic aorta. The heart is mildly enlarged. Aortic valve and coronary calcifications. Mild left chest wall subcutaneous edema. Poststernotomy changes. No pneumothorax. The central airways are patent. Bibasilar linear densities consistent with subsegmental atelectasis. Motion artifact within the lungs results in suboptimal evaluation. Calcified right infrahilar lymph node. Small patchy groundglass airspace opacities within the right upper lobe anteriorly. A 6 mm nodule along the right minor fissure on image 129. There is an irregular 11 mm groundglass nodule within the right lung apex. Mild acute superior endplate compression fracture at L1. Old superior endplate compression fractures at T6 and T12. Multiple tiny lytic lesions seen throughout the visualized osseous structures. IMPRESSION: 1. Extensive lymphadenopathy within the chest as described above. 2. Small patchy groundglass airspace opacities within the right upper lobe. This can be due to mild congestive change or a pneumonitis. 3. Small bilateral pleural effusions. 4. Cardiomegaly. 5. An 11 mm groundglass nodule within the right lung apex. Six-month chest CT follow-up is recommended to ensure stability and to exclude a low-grade bronchogenic malignancy. 6. Multiple tiny lytic lesions seen throughout the visualized osseous structures which could be related to the leukemia or possibly due to multiple myeloma. 7. Mild acute superior endplate compression fracture at L1. Old superior endplate compression fractures at T6 and T12. Electronically signed by: Bogdan Diaz M.D. 09/26/2016 3:33 PM Dictated Date/Time: 09/26/2016 3:22 PM The status of this report is Signed. Draft = Not yet reviewed or approved by Radiologist. Signed = Reviewed and approved by Radiologist. <AttendingPhy>Rene Rivas M.D.</AttendingPhy> <FamilyPhy>Bharathi Benavides D.O.</FamilyPhy> <PrimaryPhy>Terrence Gaona M.D.</PrimaryPhy> < UnitNumber>[id number]</UnitNumber> <VisitNumber>[id number]</VisitNumber> < PatientName>TAI DE DIOS V</PatientName> <DateOfBirth>1930</ DateOfBirth> [facility]> <ServiceDate>04/12/17</ServiceDate> <MNE> ESINDI</MNE> <OrderingPhy>Trevor Paris P. D.O.</OrderingPhy> <OrderingPhyMNE> f rep ord dr max</OrderingPhyMNE> <DictatingPhyMNE>f rep dict dr max</ DictatingPhyMNE> <CCListMNE>f rep ct mne</CCListMNE> <AdmittingPhyMNE>f pt admit dr max</AdmittingPhyMNE> <AttendingPhyMNE>f pt attend dr max</ AttendingPhyMNE> <ConsultingPhyMNE>f pt consult dr max</ConsultingPhyMNE> <FamilyPhyMNE>f pt fam dr max</FamilyPhyMNE> <OtherPhyMNE>f pt other dr max</OtherPhyMNE> < PrimaryPhyMNE>f pt prim care dr max</PrimaryPhyMNE> <ReferringPhyMNE>f pt referring dr max</ReferringPhyMNE> Assessment and Plan (1) Leukemia, acute Assessment & Plan: Patient has extensive lymphadenopathy on ct of chest/abd/ pelvis. This could be either leukemia or lymphoma. Lymph node will be removed on Thursday by Dr. Kuhn to determine the etiology. (2) Anemia (3) Symptomatic anemia Assessment & Plan: Most likely secondary to whatever process he has causing his lymphadenopathy (4) Chronic a-fib Assessment & Plan: monitor (5) Critical stenosis of aortic valve Assessment & Plan: No need for any additional work up at this time, the malignancy work will determine if there is a need to even consider further work up. In the context of his dementia, there is an argument not to pursue any further cardiac work up. The same limitations will be considered when it comes to pursuing further treatment of his possible malignancy. (6) Advance care planning Assessment & Plan: In light of his advanced age and multipe comorbidities, I discussed his code status with his brother and recommended that since the patient is not currently enjoying the quality of his present life, it would not make sense to put him through a medical procedure to try and reverse , with the best possible outcome being a continuation of the life, that the patient does not enjoy. The patient does not understand why, he can not live by himself, and is constantly requesting to live independently and not in a facility, his brother shared. Code Status was changed to DNR. Rod De Dios agrees with this change and will inform the rest of the family.
[2016-09-27] MEDS ORDERED: TROLAMINE SALICYLATE 10% CRM 255 APPLN/85 GM TUBE EXT PRN (20:45)
[2016-09-27] MEDS: LEVOFLOXACIN / D5W 500 MG in PREMIXED IN D5W 100 ML IV SCH (21:23)
[2016-09-27] MEDS: LEValbuterol HFA 15GM INHALER INH SCH (21:23)
[2016-09-27] MEDS: IPRATROPIUM BROMIDE HFA INHALER INH SCH (21:23)
[2016-09-27] MEDS: ATORVASTATIN 20 MG TAB PO SCH (21:27)
[2016-09-28] MEDS: NSS + 20MEQ KCL 1000ML 1,000 ML IV SCH ×3 (02:11→23:37)
[2016-09-28 03:47] VITALS: BP 137/82; PULSE 92; TEMP 36.8; O2SAT 93
[2016-09-28] MEDS: LEVOTHYROXINE 25 MCG TAB PO SCH (05:46)
[2016-09-28] MEDS: IPRATROPIUM BROMIDE HFA INHALER INH SCH ×5 (05:53→23:37)
[2016-09-28] MEDS: LEValbuterol HFA 15GM INHALER INH SCH ×5 (05:53→23:37)
[2016-09-28 06:00] LABS: MEAN CELL VOLUME 82.6 fL (80-100); MEAN CORPUSCULAR HGB CONC 33.9 g/dl (32-36); RED BLOOD COUNT 3.39 M/uL (4.7-6.1); WHITE BLOOD COUNT 8.69 K/uL (4.8-10.8)
[2016-09-28 06:01] LABS: MEAN PLATELET VOLUME 8.8 fL (7.4-10.4); PLATELET COUNT 79 K/uL (130-400)
[2016-09-28 06:29] LABS: CALCIUM 8.3 mg/dl (8.5-10.1); CREATININE 1.3 mg/dl (0.60-1.40); POTASSIUM 4.4 mmol/L (3.5-5.1)
--- NOTE | 2016-09-28 07:12 | Surgery Progress Note ---
Surgery Progress Note Date of Service Sep 28, 2016. Subjective no acute chgs Objective Vital Signs: Date Time Temp Pulse Resp B/P Pulse Ox O2 Delivery O2 Flow Rate FiO2 09/28/16 04:00 Nasal Cannula 2.0 09/28/16 03:47 36.8 92 18 137/82 93 Room Air 09/27/16 23:59 Nasal Cannula 2.0 09/27/16 23:42 36.7 93 20 147/89 93 Room Air 09/27/16 20:00 Nasal Cannula 2.0 09/27/16 19:52 36.2 94 18 142/93 92 Room Air 09/27/16 16:00 Nasal Cannula 2.0 09/27/16 15:23 36.4 94 18 129/85 93 Room Air 09/27/16 13:55 90 16 98 Nasal Cannula 2.0 09/27/16 12:32 36.3 86 20 152/98 97 Nasal Cannula 2.0 09/27/16 12:00 Nasal Cannula 2.0 09/27/16 08:00 36.4 99 20 147/80 98 Nasal Cannula 2.0 09/27/16 08:00 Nasal Cannula 2.0 Laboratory Results: Results Past 24 Hours Test 09/27/16 07:39 09/27/16 11:12 09/27/16 16:45 09/27/16 20:32 Range/Units Bedside Glucose 300 257 199 70-99 mg/dl Test 09/28/16 05:40 09/28/16 06:19 Range/Units White Blood Count 8.69 4.8-10.8 K/uL Red Blood Count 3.39 4.7-6.1 M/uL Hemoglobin 9.5 14.0-18.0 g/dL Hematocrit 28.0 42-52 % Mean Corpuscular Volume 82.6 80-100 fL Mean Corpuscular Hemoglobin 28.0 25-34 pg Mean Corpuscular Hemoglobin Concent 33.9 32-36 g/dl RDW Standard Deviation 55.0 36.4-46.3 fL RDW Coefficient of Variation 19.2 11.5-14.5 % Platelet Count 79 130-400 K/uL Mean Platelet Volume 8.8 7.4-10.4 fL Nucleated RBC Absolute Count (auto) 0.47 0-0 K/uL Nucleated Red Blood Cells % 5.4 % Sodium Level 135 136-145 mmol/L Potassium Level 4.4 3.5-5.1 mmol/L Chloride Level 102 98-107 mmol/L Carbon Dioxide Level 27 21-32 mmol/L Anion Gap 6.0 3-11 mmol/L Blood Urea Nitrogen 31 7-18 mg/dl Creatinine 1.30 0.60-1.40 mg/dl Est Creatinine Clear Calc Drug Dose 51.1 ml/min Estimated GFR () 57.7 Estimated GFR (Non- 49.8 BUN/Creatinine Ratio 24.0 10-20 Random Glucose 142 70-99 mg/dl Calcium Level 8.3 8.5-10.1 mg/dl Chemistry Specimen Hemolysis Bedside Glucose 155 70-99 mg/dl Assessment & Plan 09/28/16- for Lt supraclavicular LN bx tomorrow, 09/29 if stable local/ sedation if possible
[2016-09-28 07:59] VITALS: BP 152/92; PULSE 97; TEMP 36.9; O2SAT 94
[2016-09-28] MEDS: METOPROLOL SUCC 25MG EXT REL TAB PO SCH (08:29)
[2016-09-28] MEDS: GUAIFENESIN 600 MG TABCR PO SCH ×2 (08:29→21:09)
[2016-09-28] MEDS: TAMSULOSIN HCL 0.4 MG CAP PO SCH (08:30)
[2016-09-28] MEDS: FUROSEMIDE 20 MG TAB PO SCH (08:30)
[2016-09-28] MEDS: INSULIN ASPART 100 UNITS/ML 3 ML PEN SC SCH ×4 (08:34→21:00)
[2016-09-28] MEDS: PANTOprazole INJ 40 MG in SYRINGE 0 ML IV SCH (11:46)
--- NOTE | 2016-09-28 12:21 | Family Medicine Progress Note ---
Progress Note Date of Service Sep 28, 2016. Subjective Pt evaluation today including: conversation w/ patient, physical exam, chart review, lab review, review of studies Pain: No pain reported this morning Voiding: lopez catheter in place Patient is resting comfortably in the bedside chair this morning with no acute events overnight. He states that he is "very tired" and also complains that his lower lip is swollen. He denies any chest pain, shortness of breath, and abdominal pain. Constitutional: No chills, No fever Respiratory: No cough, No shortness of breath Cardiovascular: No chest pain Abdomen: No nausea, No pain, No vomiting Endo: + fatigue Medications Current Inpatient Medications Medications (Trade) Dose Ordered Sig/Reyna Route Start Time Stop Time Status Last Admin Dose Admin Acetaminophen (Tylenol Tab) 650 mg Q4H PRN PO 09/24/16 17:30 10/24/16 17:29 09/26/16 01:13 650 MG Zolpidem Tartrate (Ambien Tab) 5 mg HSZ PRN PO 09/24/16 17:30 10/24/16 17:29 09/27/16 22:26 5 MG Nitroglycerin (Nitrostat Tab) 0.4 mg UD PRN SL 09/24/16 17:30 10/24/16 17:29 Ondansetron HCl 4 mg 4 mg Q6H PRN IV 09/24/16 17:30 10/24/16 17:29 Potassium Chloride/Sodium Chloride 1,000 ml @ 100 mls/hr Q10H IV 09/24/16 19:00 10/24/16 18:59 09/28/16 02:11 100 MLS/HR Pantoprazole Sodium 40 mg/ Syringe 10 ml @ 5 mls/min DAILY@11 IV 09/25/16 11:00 10/25/16 10:59 09/27/16 10:22 5 MLS/MIN Levofloxacin/Prmx (Levaquin / D5W/ Premixed D5W) 100 ml @ 100 mls/hr DAILY@1999 IV 09/24/16 20:00 10/01/16 19:59 09/27/16 21:23 100 MLS/HR Guaifenesin (Mucinex Contr Rel Tab) 600 mg BID PO 09/24/16 21:00 10/24/16 20:59 09/28/16 08:29 600 MG Ipratropium [place] (Atrovent 0.02% 0.5MG/2.5ML Neb) 0.5 mg Q2H PRN INH 09/24/16 19:00 10/24/16 18:59 Levalbuterol (Xopenex 1.25MG/ 0.5ML Neb) 1.25 mg Q2H PRN INH 09/24/16 19:00 10/24/16 18:59 Atorvastatin Calcium (Lipitor Tab) 20 mg HS PO 09/24/16 21:00 10/24/16 20:59 09/27/16 21:27 20 MG Levothyroxine Sodium (Synthroid Tab) 25 mcg DAILYBB PO 09/25/16 06:00 10/25/16 05:59 09/28/16 05:46 25 MCG Tamsulosin HCl (Flomax Cap) 0.4 mg DAILY PO 09/25/16 09:00 10/25/16 08:59 09/28/16 08:30 0.4 MG Insulin Aspart (novoLOG ASPART) SLIDING SCALE If C... ACHS SC 09/24/16 21:00 10/24/16 20:59 09/28/16 08:34 6 UNITS Glucose (Glucose 40% Gel) UD PRN PO 09/24/16 20:00 10/24/16 19:59 Glucose (Glucose Chew Tab) 1 tabs UD PRN PO 09/24/16 20:00 10/24/16 19:59 Dextrose (Dextrose 50% 50ML Syringe) 50 ml UD PRN IV 09/24/16 20:00 10/24/16 19:59 Glucagon (Glucagon Inj) 1 mg UD PRN SQ 09/24/16 20:00 10/24/16 19:59 Metoprolol Succinate (Toprol Xl Tab) 25 mg QAM PO 09/26/16 12:00 10/26/16 11:59 09/28/16 08:29 25 MG Furosemide (Lasix Tab) 20 mg QAM PO 09/26/16 12:00 10/26/16 11:59 09/28/16 08:30 20 MG Ipratropium [place] (Atrovent Hfa Inhaler) 2 puffs Q6 INH 09/27/16 21:00 10/27/16 20:59 09/28/16 05:53 2 PUFFS Levalbuterol (Xopenex Hfa Inhaler) 2 puffs Q6 INH 09/27/16 21:00 10/27/16 20:59 09/28/16 05:53 2 PUFFS Trolamine Salicylate (Myoflex Cream) 1 appln QID PRN EXT 09/27/16 20:45 10/27/16 20:44 09/27/16 21:26 1 APPLN Cefazolin Sodium (Ancef 2000mg/60 ml D5W) 2,000 mg PREOP ONCE IV 09/29/16 06:00 09/29/16 06:01 Objective Vital Signs Date Time Temp Pulse Resp B/P Pulse Ox O2 Delivery O2 Flow Rate FiO2 09/28/16 08:00 Nasal Cannula 2.0 09/28/16 07:59 36.9 97 20 152/92 94 Room Air 09/28/16 04:00 Nasal Cannula 2.0 09/28/16 03:47 36.8 92 18 137/82 93 Room Air 09/27/16 23:59 Nasal Cannula 2.0 09/27/16 23:42 36.7 93 20 147/89 93 Room Air 09/27/16 20:00 Nasal Cannula 2.0 09/27/16 19:52 36.2 94 18 142/93 92 Room Air 09/27/16 16:00 Nasal Cannula 2.0 09/27/16 15:23 36.4 94 18 129/85 93 Room Air 09/27/16 13:55 90 16 98 Nasal Cannula 2.0 09/27/16 12:32 36.3 86 20 152/98 97 Nasal Cannula 2.0 09/27/16 12:00 Nasal Cannula 2.0 Physical Exam General Appearance: no apparent distress Eyes: normal inspection, sclerae normal ENT: + pertinent finding (lower lip swollen, no erythema, no bite flor presents, skin intact) Neck: supple, no carotid bruits, trachea midline Respiratory/Chest: lungs clear, normal breath sounds, no respiratory distress Cardiovascular: no JVD, + systolic murmur Abdomen: normal bowel sounds, non tender, soft, + distended Neurologic/Psychiatric: alert Laboratory Results Results Past 24 Hours Test 09/27/16 16:45 09/27/16 20:32 09/28/16 05:40 09/28/16 06:19 Range/Units Bedside Glucose 257 199 155 70-99 mg/dl White Blood Count 8.69 4.8-10.8 K/uL Red Blood Count 3.39 4.7-6.1 M/uL Hemoglobin 9.5 14.0-18.0 g/dL Hematocrit 28.0 42-52 % Mean Corpuscular Volume 82.6 80-100 fL Mean Corpuscular Hemoglobin 28.0 25-34 pg Mean Corpuscular Hemoglobin Concent 33.9 32-36 g/dl RDW Standard Deviation 55.0 36.4-46.3 fL RDW Coefficient of Variation 19.2 11.5-14.5 % Platelet Count 79 130-400 K/uL Mean Platelet Volume 8.8 7.4-10.4 fL Nucleated RBC Absolute Count (auto) 0.47 0-0 K/uL Nucleated Red Blood Cells % 5.4 % Sodium Level 135 136-145 mmol/L Potassium Level 4.4 3.5-5.1 mmol/L Chloride Level 102 98-107 mmol/L Carbon Dioxide Level 27 21-32 mmol/L Anion Gap 6.0 3-11 mmol/L Blood Urea Nitrogen 31 7-18 mg/dl Creatinine 1.30 0.60-1.40 mg/dl Est Creatinine Clear Calc Drug Dose 51.1 ml/min Estimated GFR () 57.7 Estimated GFR (Non- 49.8 BUN/Creatinine Ratio 24.0 10-20 Random Glucose 142 70-99 mg/dl Calcium Level 8.3 8.5-10.1 mg/dl Chemistry Specimen Hemolysis Test 09/28/16 10:42 Range/Units Bedside Glucose 165 70-99 mg/dl Assessment and Plan Patient is an 86 year old male with a past medical history of aortic stenosis, DM, HTN, Afib, and CAD that presented with symptomatic anemia 2/2 possible lymphoma pending biopsy as well as acute hypoxic respiratory failure 2/2 pneumonia 1) Anemia 2/2 suspected lymphoma based on current smears and imaging, awaiting biopsy scheduled to be performed tomorrow by Dr. Kuhn - Hemoglobin 7.5 on admission (7 at [facility]) - Hgb 9.5 today after receiving 2 units of irradiated PRBCs on admission - Blast Cell Number High on admission- 0.08 - Hematology Consult - Peripheral smear shows left shift and patient is mildly cytopenic - Bone Marrow Biopsy obtained from right posterior iliac crest - Dry tap, bone biopsy and marrow retrieved - CT Chest 09/26: 1. Extensive lymphadenopathy within the chest as described above. 2. Small patchy groundglass airspace opacities within the right upper lobe. This can be due to mild congestive change or a pneumonitis. 3. Small bilateral pleural effusions. 4. Cardiomegaly. 5. An 11 mm groundglass nodule within the right lung apex. Six-month chest CT follow-up is recommended to ensure stability and to exclude a low- gradebronchogenic malignancy. 6. Multiple tiny lytic lesions seen throughout the visualized osseous structures which could be related to the leukemia or possibly due to multiple myeloma. 7. Mild acute superior endplate compression fracture at L1. Old superior endplate compression fractures at T6 and T12. - CT Abdomen/Pelvis 09/26: 1. Extensive retrocrural, paraaortic and bilateral iliac lymphadenopathy. This is consistent with a lymphoproliferative disorder such as lymphoma/ leukemia. 2. Innumerable lytic foci within visualized skeletal structures which could be related to leukemia. Myeloma could appear similar. Mild compression fractures of T12, L1 and L4 which are likely acute to subacute 2) Acute Hypoxic Respiratory Failure 2/2 HCAP - Currently stable on room air - Initially placed on Vancomycin, Levaquin, and Zosyn - Currently on Day 5 of Levaquin, other antibiotics stopped - Xopenex 2 puffs q6 - Atrovent 2 puff q6 3) Aortic Stenosis - ECHO: Severe Calcified Aortic Stenosis, Normal systolic function - Consider percutaneous valve replacement once anemia and possible lymphoma/ leukemia are addressed - CXR 09/24: Prominent Pulmonary Vasculature 4) Acute on Chronic Diastolic Congestive Heart Failure - Pulmonary congestion 2/2 Severe Aortic Stenosis - Personally reviewed CXR and shows evidence of CHF - 20mg Lasix PO Daily - Currently saturating well on room air - BNP 4324 - elevated on admission 5) Atrial Fibrillation - Amiodarone 200mg PO Daily --> Discontinue as per cardiology recommendation - ToprolXL 25mg PO Daily --> Increase to 50mg - No anticoagulation at current time, explore once heme diagnosis determined - EKG: Atrial fibrillation on 09/24, Possible Atrial flutter on 09/26 6) CAD s/p CABG - Stable, no sign of ischemia on EKG - Atorvastatin 20mg PO Daily - Aspirin currently on hold due to hematologic concerns 7) Hypertension - Amlodipine 5mg PO Daily 8) Diabetes Mellitus - Sliding scale insulin - Holding home Glipizide 10mg BID and Sitagliptin (Januvia) 25mg PO Daily - Last HbA1c A1C - 10.0 in 2014 9) BPH - Tamsuloside (Flomax) 0.4mg PO Daily 10) Code Status - DNR Reviewed: Pt Seen/Exam by Me History Resident Physician Supervision Note: I interviewed and examined the patient. Discussed with Dr. Kelly and agree with findings and plan as documented in the note. Any exceptions or clarifications are listed here: Patient presents from the group home found to have hemoglobin of 7. He is found to have diffuse lymphadenopathy and suspected lymphoma. His bone marrow aspirate and biopsy are pending however it was a dry tap. Peripheral smear review shows absence of blasts as per pathology notes. The patient has a history of significant dementia and continues to have no idea why he is in the hospital. He was confused during questioning today. 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 He has overall very poor functional status and baseline dementia. He is scheduled to undergo excisional lymph node biopsy to confirm diagnosis tomorrow. I do not suspect he would handle chemotherapy very well. I would recommend discussion for palliative measures with the family member after the final diagnosis is made if it truly is malignancy which is highly likely. -Continue to monitor CBC and electrolytes -Increased metoprolol for atrial fibrillation with rates in the 90s Documented By: Arminda Gregory
[2016-09-28 15:49] VITALS: BP 125/72; PULSE 118; TEMP 36.4; O2SAT 90
[2016-09-28 20:00] VITALS: BP 156/80; PULSE 100; TEMP 36.8; O2SAT 96
[2016-09-28] MEDS: LEVOFLOXACIN / D5W 500 MG in PREMIXED IN D5W 100 ML IV SCH (21:09)
[2016-09-28] MEDS: ATORVASTATIN 20 MG TAB PO SCH (21:09)
[2016-09-28 23:48] VITALS: BP 132/82; PULSE 106; TEMP 36.4; O2SAT 94
[2016-09-29] VITALS (11 sets, daily range): BP systolic 107–136; BP diastolic 68–86; PULSE 81–99; TEMP 36.4–37.7; O2SAT 90–98
[2016-09-29] MEDS: IPRATROPIUM BROMIDE HFA INHALER INH SCH ×4 (05:56→23:53)
[2016-09-29] MEDS: LEVOTHYROXINE 25 MCG TAB PO SCH (05:56)
[2016-09-29] MEDS: LEValbuterol HFA 15GM INHALER INH SCH ×4 (05:57→23:53)
[2016-09-29] MEDS ORDERED: CEFAZOLIN IV 2,000 MG/60 ML D5W IV ONE ×2 (06:00→08:46)
[2016-09-29 06:36] LABS: HEMATOCRIT 27.6 % (42-52); MEAN CELL VOLUME 84.9 fL (80-100); RED BLOOD COUNT 3.25 M/uL (4.7-6.1); WHITE BLOOD COUNT 6.95 K/uL (4.8-10.8)
[2016-09-29 06:43] LABS: MEAN PLATELET VOLUME 8.9 fL (7.4-10.4); PLATELET COUNT 64 K/uL (130-400)
[2016-09-29] MEDS: INSULIN ASPART 100 UNITS/ML 3 ML PEN SC SCH ×4 (07:00→20:54)
[2016-09-29 07:01] LABS: BUN/CREATININE RATIO 28.3 (10-20); CREATININE 1.2 mg/dl (0.60-1.40); POTASSIUM 4.7 mmol/L (3.5-5.1)
[2016-09-29] MEDS: GUAIFENESIN 600 MG TABCR PO SCH ×2 (08:01→19:45)
[2016-09-29] MEDS: FUROSEMIDE 20 MG TAB PO SCH (08:01)
[2016-09-29] MEDS: METOPROLOL SUCC 50MG EXT REL TAB PO SCH (08:01)
[2016-09-29] MEDS ORDERED: LIDOCAINE HCL 2% 2 ML VIAL (20MG/ML) ONE (08:02)
[2016-09-29] MEDS: TAMSULOSIN HCL 0.4 MG CAP PO SCH (08:02)
[2016-09-29] MEDS ORDERED: PROPOFOL IV EMULSION 10 MG/ML 20 ML VIAL IV ONE (08:02)
[2016-09-29] MEDS ORDERED: FENTANYL CITRATE INJ 50 MCG/1 ML 2 ML VIAL ONE (08:02)
--- NOTE | 2016-09-29 08:24 | Family Medicine Progress Note ---
Progress Note Date of Service Sep 29, 2016. Subjective Pt evaluation today including: conversation w/ patient Patient is lying comfortably in bed. He asks when his biopsy will be done, not recalling that he had the procedure this morning. He is otherwise oriented to person, place, and year. He denies pain or discomfort. No SOB, CP, abdominal pain. He does complain about inability to sleep well. Respiratory: No shortness of breath Cardiovascular: No chest pain Abdomen: No nausea, No pain Objective Vital Signs Date Time Temp Pulse Resp B/P Pulse Ox O2 Delivery O2 Flow Rate FiO2 09/29/16 07:48 36.4 84 20 131/73 95 3.0 09/29/16 04:03 Nasal Cannula 2.0 09/29/16 03:35 36.5 93 18 136/80 97 Nasal Cannula 3.0 09/29/16 00:02 Nasal Cannula 2.0 09/28/16 23:48 36.4 106 20 132/82 94 Nasal Cannula 2.0 09/28/16 20:00 36.8 100 18 156/80 96 Nasal Cannula 2.0 09/28/16 20:00 Nasal Cannula 2.0 09/28/16 16:20 Nasal Cannula 2.0 09/28/16 15:49 36.4 118 18 125/72 90 Room Air 09/28/16 12:00 Nasal Cannula 2.0 Physical Exam General Appearance: WD/WN, no apparent distress ENT: hearing grossly normal Neck: supple Respiratory/Chest: lungs clear, no respiratory distress, no accessory muscle use, + decreased breath sounds Cardiovascular: regular rate, rhythm, + systolic murmur Abdomen: normal bowel sounds, non tender, soft Extremities: + pedal edema, + swelling Neurologic/Psychiatric: alert, normal mood/affect, oriented x 3, + disoriented (Confused) Skin: warm/dry, + pertinent finding (Skin changes consistent with venous insufficiency) Laboratory Results Results Past 24 Hours Test 09/28/16 19:59 09/29/16 06:06 09/29/16 06:10 09/29/16 08:21 Range/Units Bedside Glucose 179 189 196 70-99 mg/dl White Blood Count 6.95 4.8-10.8 K/uL Red Blood Count 3.25 4.7-6.1 M/uL Hemoglobin 9.1 14.0-18.0 g/dL Hematocrit 27.6 42-52 % Mean Corpuscular Volume 84.9 80-100 fL Mean Corpuscular Hemoglobin 28.0 25-34 pg Mean Corpuscular Hemoglobin Concent 33.0 32-36 g/dl RDW Standard Deviation 59.2 36.4-46.3 fL RDW Coefficient of Variation 19.8 11.5-14.5 % Platelet Count 64 130-400 K/uL Mean Platelet Volume 8.9 7.4-10.4 fL Nucleated RBC Absolute Count (auto) 1.04 0-0 K/uL Nucleated Red Blood Cells % 15.0 % Sodium Level 137 136-145 mmol/L Potassium Level 4.7 3.5-5.1 mmol/L Chloride Level 105 98-107 mmol/L Carbon Dioxide Level 23 21-32 mmol/L Anion Gap 9.0 3-11 mmol/L Blood Urea Nitrogen 34 7-18 mg/dl Creatinine 1.20 0.60-1.40 mg/dl Est Creatinine Clear Calc Drug Dose 54.9 ml/min Estimated GFR () 63.5 Estimated GFR (Non- 54.8 BUN/Creatinine Ratio 28.3 10-20 Random Glucose 173 70-99 mg/dl Calcium Level 8.0 8.5-10.1 mg/dl Chemistry Specimen Hemolysis Test 09/29/16 09:40 09/29/16 12:49 09/29/16 16:49 Range/Units Bedside Glucose 193 195 206 70-99 mg/dl Assessment and Plan 86 year old male with aortic stenosis, DM, HTN, Afib, and CAD admitted with symptomatic anemia 2/2 possible lymphoma pending biopsy as well as acute hypoxic respiratory failure 2/2 pneumonia Suspected lymphoma - Mild pancytopenia with elevated blast cell numbers on admission - 0.08. Peripheral smear showed granulocytes predominate with left shift towards myelocytes. No overt dysplastic features identified. Hematology consulted - recs appreciated. Bone marrow biopsy performed with results pending. CT Chest (09/26) showed extensive lymphadenopathy, patchy ground glass airspace opacities in the RUL, small bilateral pleural effusions and multiple tiny lytic lesions and compression fractures seen throughout the visualized osseous structures. CT Abdo/Pelvis (09/26) showed extensive retrocrural, paraaortic and bilateral iliac lymphadenopathy, innumerable lytic foci within visualized skeletal structures as well as additional mild vertebral compression fractures. Patient underwent LN biopsy by Dr. Kuhn on 09/29 - Trace bone marrow biopsy results - Trace LN biopsy results Acute hypoxic respiratory failure 2/2 HCAP - Empirically started on IV Vancomycin, Levaquin, and Zosyn, which were de-escalated - Currently on 2-3L O2 via NC, wean as tolerated - Continue Levofloxacin (Day 6 of 7) - Continue Xopenex 2 puffs q6h and Atrovent 2 puff q6h Anemia - Hemoglobin 7.5 on admission, increased to 9.5 after transfusion of 2 units of irradiated PRBCs - Monitor H/H Aortic stenosis - CXR 09/24: prominent pulmonary vasculature, echo showed severe calcified aortic stenosis with normal systolic function - Consider percutaneous valve replacement once anemia and possible lymphoma/ leukemia are addressed Acute on chronic diastolic CHF - presented with pulmonary congestion, CXR shows consistent evidence of CHF, BNP 4324 on admission - Continue PO Lasix 20mg daily Atrial Fibrillation - Cardiology consulted, recs appreciated. EKG showed atrial fibrillation on 09/24 and possible atrial flutter on 09/26. Amiodarone discontinued, metoprolol titrated up - Continue Toprol XL 50mg PO daily - Continue withholding anticoagulation, reconsider once heme diagnosis determined CAD s/p CABG - Stable, no sign of ischemia on EKG - Atorvastatin 20mg PO Daily - Aspirin currently on hold due to hematologic concerns Hypertension - Continue amlodipine 5mg PO Daily Diabetes Mellitus - Last HbA1c A1C - 10.0 in 2014. - Holding home Glipizide 10mg BID and Sitagliptin (Januvia) 25mg PO Daily - Sliding scale insulin BPH - Tamsulosin (Flomax) 0.4mg PO Daily Code Status - DNR Dispo - [facility] Continued [facility] stay due to: home environment unsafe for pt Discharge planning: group home facility Resident Tracking Resident Involvement: Resident Care Provided Care Provided: Adult Hospital Medicine
[2016-09-29] MEDS ORDERED: ATROPINE SULFATE 0.1 MG/ML 5ML SYR IV PRN (08:30)
[2016-09-29] MEDS ORDERED: EpHEDrine SULFATE INJ 50 MG/ML AMP IV PRN (08:30)
[2016-09-29] MEDS ORDERED: FENTANYL CITRATE INJ 50 MCG/1 ML 2 ML VIAL IV PRN (08:30)
[2016-09-29] MEDS ORDERED: LIDOCAINE HCL 1% 20 ML VIAL ONE ×2 (08:39)
--- NOTE | 2016-09-29 08:50 | HEME/ONC PROGRESS NOTE ---
DATE: 09/29/2016 DIAGNOSES: 1. Anemia/thrombocytopenia. 2. Left supraclavicular lymphadenopathy. 3. General decline. HOSPITAL COURSE: Mr. De Dios is a pleasant 86-year-old gentleman, who was admitted through the Emergency Room on September 24 with low hemoglobin. He had no active complaints at the time of admission; however, nursing reports diminishing mental status. He is pending OR today to obtain a biopsy of left supraclavicular lymphadenopathy. He underwent a previous bone marrow biopsy and aspiration; the results should be available in the next 24 to 48 hours. Nursing reports no overnight issues otherwise. PHYSICAL EXAMINATION: GENERAL: He is a pleasant, but somewhat disoriented 86-year-old gentleman, in no acute distress. VITAL SIGNS: Temperature is 36.4, pulse 84, respirations 20 and blood pressure 131/73. SKIN: Stasis dermatitis changes in his lower extremities bilaterally. HEENT: Oral mucosa without erythema or ulceration. NECK: Supple. Palpable left supraclavicular lymphadenopathy. CARDIAC: A 2/6 holosystolic murmur heard in the left precordium. LUNGS: Clear. ABDOMEN: Soft, nontender and nondistended. EXTREMITIES: Has 1+ peripheral edema bilaterally. NEUROLOGIC: Grossly intact. LABORATORY DATA: WBC count 6950, hemoglobin 9.1 and platelet count 64,000. Sodium 137, potassium 4.7, chloride 105, carbon dioxide 23, creatinine 1.20 and BUN 34. IMPRESSION: 1. Anemia/thrombocytopenia. 2. Left supraclavicular lymphadenopathy. 3. Altered mental status. 4. Acute respiratory failure, bilateral lobar pneumonia. PLAN: We have been asked to evaluate Mr. De Dios secondary to profound anemia and thrombocytopenia. Dr. Paris performed a bone marrow biopsy on the and the results are pending at this time. There is suspicion for possible underlying lymphoma and will undergo biopsy of the left supraclavicular lymphadenopathy today. Certainly, the question is of overall performance status, in going forward with any form of treatment. We will continue to follow Mr. De Dios periodically during his hospital stay and discuss further with him when the diagnosis is finalized. Thank you again for allowing us to assist in the care of this very pleasant gentleman.
--- NOTE | 2016-09-29 09:28 | Medical Student: [facility] ---
Immediate Operative Summary Operative Date Sep 29, 2016. Pre-Operative Diagnosis Left supraclavicular lymphadenopathy Post-Operative Diagnosis Same as above Procedure(s) Performed Left supraclavicular lymph node excision Surgeon Dr. Kuhn Estimated Blood Loss 5 cc Findings Enlarged left supraclavicular lymph node Specimens Left supraclavicular lymph node Drains Sears Anesthesia Local/sedation Complication(s) None Disposition Recovery Room / PACU
--- NOTE | 2016-09-29 09:29 | [facility] Post Operative Brief Note ---
Immediate Operative Summary Operative Date Sep 29, 2016. Pre-Operative Diagnosis lymphadenopathy Post-Operative Diagnosis same Procedure(s) Performed Lt supraclavicular LN bx Surgeon Kuhn Hog Cutter Surgeon(s) nurses Estimated Blood Loss 5 cc Findings lymphadenopathy Specimens lymph node Anesthesia local/ sedation Complication(s) None Disposition Recovery Room / PACU
--- NOTE | 2016-09-29 09:42 | Anesthesiology Progress Note ---
Anesthesia Post Op Note Date & Time Sep 29, 2016 at 09:41 Vital Signs Pain Intensity: 0 Vital Signs Past 12 Hours Date Time Temp Pulse Resp B/P Pulse Ox O2 Delivery O2 Flow Rate FiO2 09/29/16 09:28 36.4 82 18 104/58 100 Mask 10 09/29/16 07:48 36.4 84 20 131/73 95 3.0 09/29/16 04:03 Nasal Cannula 2.0 09/29/16 03:35 36.5 93 18 136/80 97 Nasal Cannula 3.0 09/29/16 00:02 Nasal Cannula 2.0 09/28/16 23:48 36.4 106 20 132/82 94 Nasal Cannula 2.0 Notes Mental Status: alert / awake / arousable, participated in evaluation Pt Amnestic to Procedure: Yes Nausea / Vomiting: adequately controlled Pain: adequately controlled Airway Patency, RR, SpO2: stable & adequate BP & HR: stable & adequate Hydration State: stable & adequate Anesthetic Complications: no major complications apparent
[2016-09-29] MEDS ORDERED: HYDROCODONE/ACETAMOPHEN 5/325MG TAB PO PRN (09:45)
[2016-09-29] MEDS: LEVOFLOXACIN 500 MG TAB PO SCH (10:12)
[2016-09-29] MEDS: NSS + 20MEQ KCL 1000ML 1,000 ML IV SCH (10:12)
[2016-09-29] MEDS: PANTOprazole INJ 40 MG in SYRINGE 0 ML IV SCH (10:12)
--- NOTE | 2016-09-29 10:22 | Pharmacy Progress Note ---
Automatic IV to PO Conversion Date of Service: Sep 29, 2016. [facility] has identified patient as an appropriate candidate for automatic intravenous to oral conversion. Eligible medication: LVQ Subjective The patient is a 86 year old male admitted on Sep 24, 2016 at 17:19 for Leukemia , Acute, Symptomatic Anemia. Objective Vital Signs: Vital Signs Past 12 Hours Date Time Temp Pulse Resp B/P Pulse Ox O2 Delivery O2 Flow Rate FiO2 09/29/16 09:45 36.7 78 20 110/61 100 Nasal Cannula 2 09/29/16 09:35 88 12 101/65 99 Mask 10 09/29/16 09:28 36.4 82 18 104/58 100 Mask 10 09/29/16 07:48 36.4 84 20 131/73 95 3.0 09/29/16 04:03 Nasal Cannula 2.0 09/29/16 03:35 36.5 93 18 136/80 97 Nasal Cannula 3.0 09/29/16 00:02 Nasal Cannula 2.0 09/28/16 23:48 36.4 106 20 132/82 94 Nasal Cannula 2.0 White Blood Count: Test 09/29/16 06:10 White Blood Count 6.95 K/uL (4.8-10.8) Height (Feet): 5 Height (Inches): 10.00 Weight (Kilograms): 106.300 Type of Diet: Diabetic Assessment & Plan The Infectious Disease Society and the [place] [employer] recommend conversion to oral therapy once a patient is determined to be clinically stable and are able to tolerate oral medications. Patient identified as appropriate candidate for IV to PO conversion of LVQ based on the following criteria: * Afebrile for greater than or equal to 12 hours * Receiving oral/enteral medications and/or tolerating oral/enteral diet for greater than 24 hours * Improvement in clinical condition evidenced by .. WBC count of 6.95 10^3/uL and trending downward, resolution of signs/symptoms of illness * Hemodynamically stable or * Receiving oral medications and/or tolerating oral diet for greater than 24 hours * Patient does not meet criteria for use of intravenous proton pump inhibitors ( negative for GI bleed, hypersecretory conditions, GERD associated with erosive esophagitis & unable to take PO) Automatic conversion to: LVQ 500mg PO every 24 hours
--- NOTE | 2016-09-29 11:07 | OPERATIVE REPORT ---
DATE OF OPERATION: 09/29/2016 NAME OF OPERATION: Right supraclavicular lymph node biopsy. PREOPERATIVE DIAGNOSIS: Lymphadenopathy. POSTOPERATIVE DIAGNOSIS: Same. STAFF SURGEON: Dr. Rod Kuhn. ANESTHESIA: Local with sedation with 1% plain lidocaine. DESCRIPTION OF PROCEDURE: The patient was brought into the operating room and placed on the operating table in the supine position. After appropriate sedation, his left neck and shoulder areas were prepped and draped in the usual fashion. 1% plain lidocaine was used to anesthetize skin and subcutaneous tissue in the supraclavicular area on the left side. Transverse incision was made carrying dissection down through the platysma muscle and fascia, identifying the lymph nodes. I dissected 1 lymph node from surrounding tissue, which was relatively large. It was sent for routine pathology. The deep tissue was reapproximated using 2-0 chromic catgut suture and then the platysma muscle reapproximated using 4-0 chromic catgut suture and then the skin reapproximated using Dermabond. The patient was transferred to recovery room in stable condition. I attest to the content of the Intraoperative Record and any orders documented therein. Any exceptio ns are noted below.
[2016-09-29] MEDS: HYDROCODONE/ACETAMOPHEN 5/325MG TAB PO PRN (12:58)
--- NOTE | 2016-09-29 13:30 | Progress Note ---
Subjective Date of Service: Sep 29, 2016. Subjective Pt evaluation today including: conversation w/ patient, conversation w/ family , physical exam, chart review, lab review, review of studies, review of inpatient medication list pt seen, no HPI or ROS obtainable from him. d/w brother. pt seen post lymph node dissection. no apparent acute problems. 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 in addition to this, brother believes memory was slowly fading over several years. pt recently came to reside at [facility] Problem List Medical Problems: (1) Anemia Status: Acute (2) Weakness Status: Acute Review of Systems unobtainable from pt Objective Vital Signs Date Time Temp Pulse Resp B/P Pulse Ox O2 Delivery O2 Flow Rate FiO2 09/29/16 12:00 99 124/86 90 09/29/16 12:00 Nasal Cannula 2.0 09/29/16 11:56 36.4 84 20 123/76 98 2.0 09/29/16 11:30 92 136/81 97 09/29/16 10:55 86 125/79 97 09/29/16 10:40 85 121/77 97 09/29/16 10:24 82 107/68 96 09/29/16 10:08 36.9 81 12 116/72 98 Nasal Cannula 2.0 09/29/16 09:45 36.7 78 20 110/61 100 Nasal Cannula 2 09/29/16 09:35 88 12 101/65 99 Mask 10 09/29/16 09:28 36.4 82 18 104/58 100 Mask 10 09/29/16 08:00 Nasal Cannula 2.0 09/29/16 07:48 36.4 84 20 131/73 95 3.0 09/29/16 04:03 Nasal Cannula 2.0 09/29/16 03:35 36.5 93 18 136/80 97 Nasal Cannula 3.0 09/29/16 00:02 Nasal Cannula 2.0 09/28/16 23:48 36.4 106 20 132/82 94 Nasal Cannula 2.0 09/28/16 20:00 36.8 100 18 156/80 96 Nasal Cannula 2.0 09/28/16 20:00 Nasal Cannula 2.0 09/28/16 16:20 Nasal Cannula 2.0 09/28/16 15:49 36.4 118 18 125/72 90 Room Air Physical Exam General Appearance: no apparent distress Eyes: EOMI ENT: hearing grossly normal Neck: trachea midline Respiratory/Chest: no respiratory distress, no accessory muscle use Extremities: + pertinent finding (supraclavicular node site dressed, no bruising) 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, alert, + disoriented Skin: normal color, warm/dry Laboratory Results Last 24 Hours Test 09/28/16 16:38 09/28/16 19:59 09/29/16 06:06 09/29/16 06:10 Bedside Glucose 180 mg/dl 179 mg/dl 189 mg/dl White Blood Count 6.95 K/uL Red Blood Count 3.25 M/uL Hemoglobin 9.1 g/dL Hematocrit 27.6 % Mean Corpuscular Volume 84.9 fL Mean Corpuscular Hemoglobin 28.0 pg Mean Corpuscular Hemoglobin Concent 33.0 g/dl RDW Standard Deviation 59.2 fL RDW Coefficient of Variation 19.8 % Platelet Count 64 K/uL Mean Platelet Volume 8.9 fL Nucleated RBC Absolute Count (auto) 1.04 K/uL Nucleated Red Blood Cells % 15.0 % Sodium Level 137 mmol/L Potassium Level 4.7 mmol/L Chloride Level 105 mmol/L Carbon Dioxide Level 23 mmol/L Anion Gap 9.0 mmol/L Blood Urea Nitrogen 34 mg/dl Creatinine 1.20 mg/dl Est Creatinine Clear Calc Drug Dose 54.9 ml/min Estimated GFR () 63.5 Estimated GFR (Non- 54.8 BUN/Creatinine Ratio 28.3 Random Glucose 173 mg/dl Calcium Level 8.0 mg/dl Chemistry Specimen Hemolysis Test 09/29/16 08:21 09/29/16 09:40 09/29/16 12:49 Bedside Glucose 196 mg/dl 193 mg/dl 195 mg/dl Assessment and Plan (1) Leukemia, acute Assessment & Plan: awaiting path on bone marrow and lymph node. once true dx confirmed, can d/w family in regards to treatment vs comfort (2) Anemia Assessment & Plan: overall appearing stable, continue to follow (3) Symptomatic anemia (4) Chronic a-fib Assessment & Plan: rate reasonable, continue to follow currently not anticoagulated due to surgery will follow for ??if risks/benefits favor starting (5) Critical stenosis of aortic valve Assessment & Plan: ongoing med management, appearing compensated at this time (6) Advance care planning Assessment & Plan: ongoing discussions with brother once pathology becomes available DVT proph - pharmacologic contraindicated due to anemia/thrombocytopenia, see above in regards to +/- chronic anticoag w afib, but for now would favor holding off due to risk of harm severe dementia -sounds to be multifactorial w likely alzheimers and a long standing psychosis -ongoing supportive care
[2016-09-29] MEDS: ATORVASTATIN 20 MG TAB PO SCH (19:45)
[2016-09-30] VITALS: BP 104/69; PULSE 92; TEMP 36.8; O2SAT 96
[2016-09-30 03:51] VITALS: BP 112/74; PULSE 88; TEMP 36.7; O2SAT 96
[2016-09-30] MEDS: LEVOTHYROXINE 25 MCG TAB PO SCH (06:28)
[2016-09-30] MEDS: IPRATROPIUM BROMIDE HFA INHALER INH SCH ×2 (06:28→13:49)
[2016-09-30] MEDS: LEValbuterol HFA 15GM INHALER INH SCH ×2 (06:28→13:50)
[2016-09-30] MEDS: INSULIN ASPART 100 UNITS/ML 3 ML PEN SC SCH ×2 (07:00→11:00)
--- NOTE | 2016-09-30 08:06 | Family Medicine Progress Note ---
Progress Note Date of Service Sep 30, 2016. Subjective Pt evaluation today including: conversation w/ patient Objective Vital Signs Date Time Temp Pulse Resp B/P Pulse Ox O2 Delivery O2 Flow Rate FiO2 09/30/16 04:00 Nasal Cannula 2.0 09/30/16 03:51 36.7 88 18 112/74 96 Nasal Cannula 2.0 09/30/16 00:00 36.8 92 18 104/69 96 Nasal Cannula 2.0 09/29/16 23:59 Nasal Cannula 2.0 09/29/16 20:00 Nasal Cannula 2.0 09/29/16 19:23 36.7 85 18 113/75 97 Nasal Cannula 1.5 09/29/16 16:00 Nasal Cannula 2.0 09/29/16 15:22 37.7 86 20 119/73 98 Nasal Cannula 1.5 09/29/16 12:00 99 124/86 90 09/29/16 12:00 Nasal Cannula 2.0 09/29/16 11:56 36.4 84 20 123/76 98 2.0 09/29/16 11:30 92 136/81 97 09/29/16 10:55 86 125/79 97 09/29/16 10:40 85 121/77 97 09/29/16 10:24 82 107/68 96 09/29/16 10:08 36.9 81 12 116/72 98 Nasal Cannula 2.0 09/29/16 09:45 36.7 78 20 110/61 100 Nasal Cannula 2 09/29/16 09:35 88 12 101/65 99 Mask 10 09/29/16 09:28 36.4 82 18 104/58 100 Mask 10 Resident Tracking Resident Involvement: Resident Care Provided Care Provided: Adult Hospital Medicine
[2016-09-30 08:13] VITALS: BP 118/76; PULSE 92; TEMP 36.6; O2SAT 99
[2016-09-30] MEDS ORDERED: POLYETHYLENE (MIRALAX) 17 GM PACK PO PRN (09:00)
[2016-09-30] MEDS ORDERED: DOCUSATE SODIUM 100 MG CAP PO ONE (09:00)
[2016-09-30] MEDS ORDERED: DOCUSATE SODIUM 100 MG CAP PO SCH (09:00)
[2016-09-30] MEDS ORDERED: PANTOprazole SOD 40 MG TAB PO SCH (09:00)
[2016-09-30] MEDS ORDERED: MAGNESIUM HYDROXIDE SUSP 30 ML UDC PO PRN (09:00)
[2016-09-30] MEDS: HYDROCODONE/ACETAMOPHEN 5/325MG TAB PO PRN (09:15)
[2016-09-30] MEDS: METOPROLOL SUCC 50MG EXT REL TAB PO SCH (09:16)
[2016-09-30] MEDS: GUAIFENESIN 600 MG TABCR PO SCH (09:17)
[2016-09-30] MEDS: TAMSULOSIN HCL 0.4 MG CAP PO SCH (09:17)
[2016-09-30] MEDS: FUROSEMIDE 20 MG TAB PO SCH (09:18)
--- NOTE | 2016-09-30 10:11 | CARDIOLOGY PROGRESS NOTE ---
DATE: 09/30/2016 SUBJECTIVE: This morning Mr. De Dios was concerned about getting more sugar for his tea. He denied any significant pain or breathing difficulty. He did not report being out of bed much yesterday and verbalized no specific complaints. When asked if he felt weaker he denied that complaint currently. PHYSICAL EXAMINATION: GENERAL: He was alert, he was oriented to person but little else. VITAL SIGNS: Included a blood pressure of 118/76 with a pulse of 92. Auscultation of his lung apices reveal them to be clear. He had a bandage in the left clavicular area. CARDIAC EXAMINATION: Revealed a high pitched late peaking musical murmur in the left second intercostal space in an irregular rhythm. LABORATORY STUDIES: This morning included a white cell count of 6.9, hemoglobin of 9.1 and a platelet count of 64. The patient underwent a biopsy of a left supraclavicular node yesterday, the pathology results are still pending. ASSESSMENT AND PLAN: 1. Aortic stenosis. The patient has severe aortic stenosis and did have evidence of pulmonary vascular congestion at the time of admission. For most individuals this would be considered an indication for valve replacement; however, given his comorbidities and the likelihood that he will be placed on palliative care, this will not be pursued further. 2. Atrial fibrillation. Overall the patient's rate control appears adequate as he is generally in bed. He may have slightly higher rates with activity. If the rates are notably higher, he could undergo additional increase in his daily metoprolol dose. As he is likely to be asymptomatic and his care may be transitioned to palliation, this is not an urgent matter. With respect to anticoagulation once again in the setting of what is likely to be an acute neoplastic process as well as thrombocytopenia and possible transition to palliative care, I do not feel that it is imperative to start anticoagulation currently. 3. Coronary artery disease. This appears to be quiescent currently without symptoms suggestive of angina or coronary insufficiency. At this point, cardiology will standby pending decision regarding continuation of care in an inpatient setting. It is very likely that the patient will be transitioned to either comfort care or palpitation, at which point the above issues will not be readdressed. Should the decision be made regarding more aggressive treatment or therapy, we will follow closely and make additional recommendations regarding his cardiac care.
[2016-09-30 11:16] VITALS: BP 97/62; PULSE 88; TEMP 36.4; O2SAT 97
[2016-09-30] MEDS: LEVOFLOXACIN 500 MG TAB PO SCH (13:49)
[2016-09-30 15:39] VITALS: BP 111/74; PULSE 92; TEMP 36.3; O2SAT 100
[2016-09-30] MEDS ORDERED: GFNSR600 PO (16:09)
[2016-09-30] MEDS ORDERED: METO25TA3 PO (16:09)
[2016-09-30] MEDS ORDERED: MRLP17X PO (16:09)
[2016-09-30] MEDS ORDERED: PRT40 PO (16:09)
[2016-09-30] MEDS ORDERED: ATRIN INH (16:09)
[2016-09-30] MEDS ORDERED: HYDR-5688 PO ×2 (16:09→16:12)
[2016-09-30] MEDS ORDERED: LSX20 PO (16:09)
[2016-09-30] MEDS ORDERED: Levalbuterol INH (16:09)
[2016-09-30] MEDS ORDERED: TROL10CR EXT (16:12)
--- NOTE | 2016-09-30 16:26 | Discharge Instructions ---
Discharge Instructions Date of Service Sep 30, 2016. Admission Reason for Admission: Leukemia, Acute, Symptomatic Anemia Discharge Discharge Diagnosis / Problem: METASTATIC ADENOCARCINOMA CONSISTENT WITH PROSTATE PRIMARY Discharge Goals Goal(s): Decrease discomfort, Improve disease control, Diagnostic testing Activity Recommendations Activity Limitations: resume your previous activity . Instructions / Follow-Up Instructions / Follow-Up 86 year old male with some underlying dementia, aortic stenosis, DM, HTN, Afib, and CAD admitted with symptomatic anemia initially thought to be 2/2 possible lymphoma pending biopsy as well as acute hypoxic respiratory failure 2/2 pneumonia. Work up has led to diagnosis of metastatic prostate cancer. Metastatic cancer - Mild pancytopenia with elevated blast cell numbers on admission - 0.08. Peripheral smear showed granulocytes predominate with left shift towards myelocytes. No overt dysplastic features identified. Hematology consulted - recs appreciated. Bone marrow biopsy performed with results pending on date of transfer. CT Chest (09/26) showed extensive lymphadenopathy, patchy ground glass airspace opacities in the RUL, small bilateral pleural effusions and multiple tiny lytic lesions and compression fractures seen throughout the visualized osseous structures. CT Abdo/Pelvis () showed extensive retrocrural, paraaortic and bilateral iliac lymphadenopathy , innumerable lytic foci within visualized skeletal structures as well as additional mild vertebral compression fractures. Patient underwent LN biopsy by Dr. Kuhn on 09/29. LN biopsy results report specimen sample features are consistent with an adenocarcinoma of prostate origin. Patient will need outpatient follow up with oncologist for discussion regarding management versus comfort care. Acute hypoxic respiratory failure 2/2 HCAP - Started in oxygen via nasal cannula for symptoms and empirically started on IV Vancomycin, Levaquin, and Zosyn, which were de-escalated. 7 day course of Levaquin completed 09/29. Currently on 2-3L O2 via NC, wean as tolerated. Continue Xopenex 2 puffs q6h and Atrovent 2 puff q6h. Anemia - Hemoglobin 7.5 on admission, increased to 9.5 after transfusion of 2 units of irradiated PRBCs. H/H has remained stable since. Continue to monitor. Aortic stenosis - CXR (09/24) showed prominent pulmonary vasculature, echo showed severe calcified aortic stenosis with normal systolic function. Consider percutaneous valve replacement once anemia and malignancy are addressed Acute on chronic diastolic CHF - presented with pulmonary congestion, CXR showed evidence consistent with CHF. BNP 4324 on admission. Continue PO Lasix 20mg daily. Monitor BMP twice weekly Atrial Fibrillation - EKG showed atrial fibrillation on 09/24 and possible atrial flutter on 09/26. Cardiology consulted, recs appreciated. Amiodarone discontinued, metoprolol titrated up. Continue Toprol XL 50mg PO daily. Currently not anticoagulated. May start once decision made regarding malignancy management. CAD s/p CABG - Stable, no sign of ischemia on EKG. Continue atorvastatin 20mg PO Daily. Restart aspirin tomorrow 10/01, once biopsy site is well healed. Hypertension - Amlodipine held in view of mostly low/normal BP readings. Diabetes Mellitus - Last HbA1c A1C - 10.0 in 2014. Continue Glipizide 10mg BID and Sitagliptin (Januvia) 25mg PO Daily BPH - Continue Tamsulosin (Flomax) 0.4mg PO Daily Code Status - DNR Current Hospital Diet Patient's current hospital diet: Diabetes Type 2 Diet Discharge Diet Recommended Diet: Diabetes Type 2 Diet Procedures Procedures Performed: Lt supraclavicular LN bx Pending Studies Studies pending at discharge: yes List of pending studies: Bone marrow biopsy Medical Emergencies . Who to Call and When: Medical Emergencies: If at any time you feel your situation is an emergency, please call 911 immediately. . Non-Emergent Contact Non-Emergency issues call your: Primary Care Provider . . "Provider Documentation" section prepared by Daphne George. VTE Core Measure Inpt VTE Proph given/why not?: SCD's
[2016-09-30 17:11] VITALS: BP 111/74; PULSE 92; TEMP 36.3; O2SAT 100
--- NOTE | 2016-09-30 19:17 | Discharge Summary ---
Discharge Summary Date of Service Sep 30, 2016. Discharge Summary Admission Date: Sep 24, 2016 at 17:19 Discharge Date: Sep 30, 2016 Discharge Disposition: [facility] facility Principal Diagnosis: Metastatic prostate cancer Medication Reconciliation New Medications: Furosemide (Furosemide) 20 Mg Tab 20 MG PO QAM for 30 Days, #30 TAB Guaifenesin Ext Rel (Mucinex Ext Rel) 600 Mg Tabcr 600 MG PO BID for 14 Days Hydrocodone/Acetaminophen 5MG/325MG ([place] 5MG/325MG) Tab 2 TAB PO Q4 PRN for Pain for 30 Days, TAB PRN PAIN Hydrocodone/Acetaminophen 5MG/325MG ([place] 5MG/325MG) Tab 1 TAB PO Q4 PRN for Pain for 30 Days, TAB PRN PAIN Ipratropium Anna (Atrovent Hfa) 200 Puffs/3400 Mcg Aers 2 PUFFS INH Q6 for 30 Days Pantoprazole (Pantoprazole Sodium) 40 Mg Tab 40 MG PO QAM for 30 Days, #30 TAB Polyethylene (Miralax) 17 Gm Pow 17 GM PO DAILY PRN for Constipation for 30 Days Trolamine Salicylate (Asper-Flex) 10 % Cre 1 APPLN EXT QID PRN for MUSCLE PAIN, #30 [Levalbuterol] () 1 INH 2 PUFFS INH Q6 Changed Medications: Metoprolol Succinate (Toprol Xl) 25 Mg Tabcr 50 MG PO DAILY, #30 TAB (Changed from: 25 MG) Continued Medications: Acetaminophen Tab (Tylenol) 325 Mg Tab 650 MG PO Q6 PRN for Pain or Fever, TAB Atorvastatin (Lipitor) 20 Mg Tab 20 MG PO HS, TAB Docusate Sodium (Colace) 100 Mg Cap 1 CAP PO BID for 30 Days, #60 CAP Glipizide (Glucotrol) 10 Mg Tab 10 MG PO BID, TAB Levothyroxine Sodium (Synthroid) 25 Mcg Tab 25 MCG PO DAILY, TAB Magnesium Hydroxide (Milk Of Magnesia) 30 Ml Susp 30 ML PO PRN UD, ML PRN FOR NO BM FOR 9 SHIFTS Melatonin-Pyridoxine (Melatonin) 1 Tab Tab 3 MG PO HS Multivitamins/Minerals (Mvi With Minerals) Tab 1 TAB PO DAILY, TAB Polyethylene Glycol 3350 (Miralax) 1 Pow Pow 17 GM PO BID, #255 GM Sennosides-Docusate Sodium (Senna-S) 1 Tab Tab 1 TAB PO DAILY Sitagliptin (Januvia) 25 Mg Tab 25 MG PO DAILY, TAB Tamsulosin Hcl (Flomax) 0.4 Mg Cap 0.4 MG PO DAILY, CAP [Protein Supp] () 30 ML PO DAILY Discontinued Medications: Amiodarone Hcl (Cordarone) 200 Mg Tab 200 MG PO DAILY, TAB HOLD FOR APICAL HR <50 Amlodipine (Norvasc) 5 Mg Tab 5 MG PO DAILY, TAB Discharge Exam Patient alert, but less oriented/more confused today. He had slumped sideways in the bed and was requiring two person assist to sit up. He otherwise denied any pain or discomfort, SOB or CP. His main complaint was poor sleep overnight. He is tolerating diet without issues. He has a lopez bag in situ. He has not had a bowel movement for many days, but denies feeling constipated. He was agreeable to some stool softeners. Review of Systems: Respiratory: No shortness of breath Cardiovascular: No chest pain Abdomen: No pain Physical Exam: General Appearance: WD/WN, no apparent distress Neck: supple Respiratory/Chest: lungs clear, no respiratory distress, no accessory muscle use, + decreased breath sounds Cardiovascular: regular rate, rhythm, + systolic murmur Abdomen / GI: normal bowel sounds, soft Extremities: no calf tenderness, + pedal edema, + swelling Neurologic/Psychiatric: alert, + disoriented Skin: warm/dry, + pertinent finding (Changes bilateral LL consistent with venous insufficiency) Hospital Course 86 year old male with some underlying dementia, aortic stenosis, DM, HTN, Afib, and CAD admitted with symptomatic anemia initially thought to be 2/2 possible lymphoma pending biopsy as well as acute hypoxic respiratory failure 2/2 pneumonia. Work up has led to diagnosis of metastatic prostate cancer. Metastatic cancer - Mild pancytopenia with elevated blast cell numbers on admission - 0.08. Peripheral smear showed granulocytes predominate with left shift towards myelocytes. No overt dysplastic features identified. Hematology consulted - recs appreciated. Bone marrow biopsy performed with results pending on date of transfer. CT Chest (09/26) showed extensive lymphadenopathy, patchy ground glass airspace opacities in the RUL, small bilateral pleural effusions and multiple tiny lytic lesions and compression fractures seen throughout the visualized osseous structures. CT Abdo/Pelvis () showed extensive retrocrural, paraaortic and bilateral iliac lymphadenopathy , innumerable lytic foci within visualized skeletal structures as well as additional mild vertebral compression fractures. Patient underwent LN biopsy by Dr. Kuhn on 09/29. LN biopsy results report specimen sample features are consistent with an adenocarcinoma of prostate origin. Patient will need outpatient follow up with oncologist for discussion regarding management versus comfort care. Acute hypoxic respiratory failure 2/2 HCAP - Started in oxygen via nasal cannula for symptoms and empirically started on IV Vancomycin, Levaquin, and Zosyn, which were de-escalated. 7 day course of Levaquin completed 09/29. Currently on 2-3L O2 via NC, wean as tolerated. Continue Xopenex 2 puffs q6h and Atrovent 2 puff q6h. Anemia - Hemoglobin 7.5 on admission, increased to 9.5 after transfusion of 2 units of irradiated PRBCs. H/H has remained stable since. Continue to monitor. Aortic stenosis - CXR (09/24) showed prominent pulmonary vasculature, echo showed severe calcified aortic stenosis with normal systolic function. Consider percutaneous valve replacement once anemia and malignancy are addressed Acute on chronic diastolic CHF - presented with pulmonary congestion, CXR showed evidence consistent with CHF. BNP 4324 on admission. Continue PO Lasix 20mg daily. Monitor BMP twice weekly Atrial Fibrillation - EKG showed atrial fibrillation on 09/24 and possible atrial flutter on 09/26. Cardiology consulted, recs appreciated. Amiodarone discontinued, metoprolol titrated up. Continue Toprol XL 50mg PO daily. Currently not anticoagulated. May start once decision made regarding malignancy management. CAD s/p CABG - Stable, no sign of ischemia on EKG. Continue atorvastatin 20mg PO Daily. Restart aspirin tomorrow 10/01, once biopsy site is well healed. Hypertension - Amlodipine held in view of mostly low/normal BP readings. Diabetes Mellitus - Last HbA1c A1C - 10.0 in 2014. Continue Glipizide 10mg BID and Sitagliptin (Januvia) 25mg PO Daily BPH - Continue Tamsulosin (Flomax) 0.4mg PO Daily Code Status - DNR Brother, Rod De Dios was called to update regarding transfer to [facility] and biopsy diagnosis. Unfortunately, he was not able to speak for long and plans to call back tomorrow for further details. Total Time Spent: Less than 30 minutes This includes examination of the patient, discharge planning, medication reconciliation, and communication with other providers. Discharge Instructions Please refer to the electronic Patient Visit Report (Discharge Instructions) for additional information.
--- NOTE | 2016-10-01 07:46 | Palliative Care Progress Note ---
Palliative Care Progress Note Date of Service Oct 01, 2016. Subjective Patient was discharged before formal consult completed. I did find a POLST form on patient's chart that read as follows: DNR/DNI, limited additional interventions, determine use or limitation of antibiotics when infection occurs with comfort as the goal, trial of artificial hydration/nutrition. The patient unfortunately has dementia and his brother was en route back to [place], [place] yesterday, so I was not able to meet with him. Patient was discharged back to the [facility].
[2016-10-11] MEDS ORDERED: LVQ500 PO (12:24)
== END 2016-09-30 18:01 | DRG 823 ==
LOC: ENRESERVDT → ENRESERVTM → EDBD 16:00 → C.EDC 16:04 → C.2T 17:19 → UNDODISIN 09-25 11:36
PROVIDERS: ADMIT Hospitalist; ATTEND Family Medicine
PROC: 07DR3ZX Extraction of Iliac Bone Marrow, Percutaneous Approach, Diagnostic (ICD-10-PCS; 2016-09-26)
PROC: 07B70ZX Excision of Thorax Lymphatic, Open Approach, Diagnostic (ICD-10-PCS; principal; 2016-09-29 09:00)
DX: C77.0 Secondary and unspecified malignant neoplasm of lymph nodes of head, face and neck (principal); J96.01 Acute respiratory failure with hypoxia; J18.9 Pneumonia, unspecified organism; I50.33 Acute on chronic diastolic (congestive) heart failure; I48.2 Chronic atrial fibrillation; C61 Malignant neoplasm of prostate; E78.00 Pure hypercholesterolemia, unspecified; E03.9 Hypothyroidism, unspecified; N40.0 Benign prostatic hyperplasia without lower urinary tract symptoms; M40.209 Unspecified kyphosis, site unspecified; F03.90 Unspecified dementia, unspecified severity, without behavioral disturbance, psychotic disturbance, mood disturbance, and anxiety; I35.0 Nonrheumatic aortic (valve) stenosis; I12.9 Hypertensive chronic kidney disease with stage 1 through stage 4 chronic kidney disease, or unspecified chronic kidney disease; N18.9 Chronic kidney disease, unspecified; E11.21 Type 2 diabetes mellitus with diabetic nephropathy; Z66 Do not resuscitate; N20.0 Calculus of kidney

== ENCOUNTER → 2016-09-24 | Outpatient (CLI) | payer OTHER ==
[~2016-09-24] MED LIST: ACET325T96 PO; AMIO200T4 PO; AMLO-110 PO; ATOR-22 PO; ATRIN INH; DOCU-94 PO; GFNSR600 PO; GLIP10TA3 PO; HYDR-5688 PO; LEVO25TA PO; LSX20 PO; LVQ500 PO; Levalbuterol INH; MELA3TAB12 PO; METO25TA3 PO; MOML PO; MRLP17X PO; MULT-513 PO; POLY335019 PO; PROTEIN PO; PRT40 PO; SENN-104 PO; SITA25TA PO; TAMS0.4C38 PO; TROL10CR EXT
[2016-09-24 12:14] LABS: HEMATOCRIT 21.9 % (42-52); MEAN CELL VOLUME 83.6 fL (80-100); MEAN CORPUSCULAR HEMOGLOBIN 27.9 pg (25-34); RED BLOOD COUNT 2.62 M/uL (4.7-6.1); WHITE BLOOD COUNT 4.73 K/uL (4.8-10.8)
[2016-09-24 12:30] LABS: ALT/SGPT 26 U/L (12-78); AST/SGOT 46 U/L (15-37); BLOOD UREA NITROGEN 28 mg/dl (7-18); BUN/CREATININE RATIO 21.9 (10-20); CALCIUM 9.3 mg/dl (8.5-10.1); CARBON DIOXIDE 28 mmol/L (21-32); CHLORIDE 99 mmol/L (98-107); GLUCOSE 82 mg/dl (70-99); POTASSIUM 4.1 mmol/L (3.5-5.1); SODIUM 135 mmol/L (136-145)
[2016-09-24 12:34] LABS: ALB/GLOB RATIO 0.6 (0.9-2); ALKALINE PHOSPHATASE 146 U/L (45-117)
[2016-09-24 12:56] LABS: MEAN CORPUSCULAR HGB CONC 33.3 g/dl (32-36); MEAN PLATELET VOLUME 9.1 fL (7.4-10.4); PLATELET COUNT 94 K/uL (130-400)
[2016-09-24 14:43] LABS: ACANTHOCYTES 1+; ANISOCYTOSIS PRESENT; BASO ABS # 0.04 K/uL (0-0.2); BASOPHIL % 0.9 % (0-2); EOSINOPHIL % 2.6 %; LYMPH ABS # 0.96 K/uL (1.2-3.4); LYMPHOCYTE % 20.2 %; META ABS # 0.09 K/uL (0-0); METAMYELOCYTE % 1.8 %; MYELOCYTE % 6.1 %; NEUTROPHILS % 62.2 %; TEAR DROP CELLS 1+
[2016-09-26 14:26] LABS: COMPLETE YES
== END ==
LOC: C.LABUPNIT 12:01
PROVIDERS: ATTEND Nurse Practitioner Family
DX: R53.83 Other fatigue (principal)